=== PATIENT | female | born 1990 | race African-American/Black ===

== ENCOUNTER 2019-09-10 04:08 | Inpatient (IN) | payer OTHER ==
[2019-09-10] VITALS (8 sets, daily range): BP systolic 124–155; BP diastolic 80–98
[~2019-09-10] VITALS: Ht 170.2 cm; Wt 87.1 kg
[2019-09-10] MEDS ORDERED: Omnipaque-300 100ml vial INJ PRN (04:30)
[2019-09-10] MEDS ORDERED: Morphine Sulfate 4mg/ml Inj (IV USE ONLY) IVP ONE ×2 (04:30→07:30)
--- NOTE | 2019-09-10 04:30 | NUR ---
ED Nurse Note: PT WALKED IN TO ER C/O LOWER ABD PAIN. STATES HAD SX YESTERDAY FOR UTERINE ARTERY EMBOLIZATION. FAMILY AT BEDSIDE. ERMD AT BEDSIDE. VSS. WILL CONTINUE TO MONITOR PATIENT.
--- NOTE | 2019-09-10 04:43 | NUR ---
ED Nurse Note: IV ESTABLISHED ON LEFT WRIST WITH 20G. BLOOD DRAWN AND SENT TO LAB. LINE PATENT AND INTACT.
[2019-09-10 04:59] LABS: BASOPHILS % (AUTO) 0.5 % (0.0-2.0); HEMATOCRIT 37.1 % (37.0-47.0); HEMOGLOBIN 12.2 G/DL (12.0-16.0); LYMPHOCYTES % (AUTO) 11.3 % (20.0-45.0); MEAN CORPUSCULAR VOLUME 91 FL (80-99); MONOCYTES % (AUTO) 6.8 % (1.0-10.0); NEUTROPHILS % (AUTO) 81.4 % (45.0-75.0); PLATELET COUNT 197 K/UL (150-450); RED BLOOD COUNT 4.08 M/UL (4.20-5.40); RED CELL DISTRIBUTION WIDTH 10.9 % (11.6-14.8); WHITE BLOOD COUNT 9.7 K/UL (4.8-10.8)
--- NOTE | 2019-09-10 05:00 | NUR ---
ED Nurse Note: URINE COLLECTED AND SENT TO LAB.
[2019-09-10 05:16] LABS: INR 1.2 (0.9-1.1)
[2019-09-10 05:17] LABS: ANION GAP 12 mmol/L (5-15); BLOOD UREA NITROGEN 9 mg/dL (7-18); CALCIUM 9.1 MG/DL (8.5-10.1); CARBON DIOXIDE 27 MMOL/L (21-32); CHLORIDE 101 MMOL/L (98-107); CREATININE 0.8 MG/DL (0.55-1.30); POTASSIUM 4.4 MMOL/L (3.5-5.1); SODIUM 139 MMOL/L (136-145)
[2019-09-10 05:32] LABS: ALANINE AMINOTRANSFERASE 25 U/L (12-78); ALBUMIN/GLOBULIN RATIO 0.9 (1.0-2.7); ALKALINE PHOSPHATASE 90 U/L (46-116); ASPARTATE AMINO TRANSFERASE 44 U/L (15-37); BILIRUBIN,TOTAL 1.1 MG/DL (0.2-1.0)
[2019-09-10 05:35] LABS: BILIRUBIN,DIRECT 0.1 MG/DL (0.0-0.3)
[2019-09-10 05:55] LABS: APPEARANCE,URINE CLEAR; BILIRUBIN, URINE NEGATIVE (NEGATIVE); COLOR,URINE PALE YELLOW; GLUCOSE, URINE (UA) NEGATIVE (NEGATIVE); KETONES,URINE NEGATIVE (NEGATIVE); LEUKOCYTE ESTERASE ,URINE NEGATIVE (NEGATIVE); NITRITE,URINE NEGATIVE (NEGATIVE); PH,URINE 7 (4.5-8.0); PROTEIN,URINE NEGATIVE (NEGATIVE); UROBILINOGEN,URINE NORMAL MG/DL (0.0-1.0)
--- NOTE | 2019-09-10 06:00 | Emergency Room Report ---
History of Present Illness General Chief Complaint: Abdominal Pain Source: Patient Present Illness HPI 28-year-old female presents ED for evaluation. Complaining of abdominal pain. Started yesterday. Had uterine artery embolization yesterday. Pain started right after pain got so bad so she came to the ED for evaluation. 10 out of 10 , sharp, nonradiating. Denies fevers or chills. No other aggravating relieving factors. Denies any other associated symptoms Allergies: Coded Allergies: No Known Allergies (Unverified , 09/10/19) Patient History Past Medical History: asthma Past Surgical History: other - uterine artery embolization 09/09/19 Pertinent Family History: none Social History: Denies: smoking, alcohol use, drug use Last Menstrual Period: 08/20/19 Now: No Immunizations: UTD Reviewed Nursing Documentation: PMH: Agreed; PSxH: Agreed Nursing Documentation-PMH Hx Asthma: Yes Review of Systems All Other Systems: negative except mentioned in HPI Physical Exam Vital Signs Date Time Temp Pulse Resp B/P (MAP) Pulse Ox O2 Delivery O2 Flow Rate FiO2 09/10/19 04:20 98.2 98 18 98 Room Air Sp02 EP Interpretation: reviewed, normal General Appearance: no apparent distress, alert, GCS 15, non-toxic Head: normocephalic, atraumatic Eyes: bilateral eye normal inspection, bilateral eye PERRL ENT: hearing grossly normal, normal pharynx, no angioedema, normal voice Neck: full range of motion, supple/symm/no masses Respiratory: chest non-tender, lungs clear, normal breath sounds, speaking full sentences Cardiovascular #1: regular rate, rhythm, no edema Cardiovascular #2: 2+ carotid (R), 2+ carotid (L), 2+ radial (R), 2+ radial (L) , 2+ dorsalis pedis (R), 2+ dorsalis pedis (L) Gastrointestinal: normal bowel sounds, soft, non-distended, no rebound, tenderness Rectal: deferred Genitourinary: normal inspection, no CVA tenderness Musculoskeletal: back normal, normal range of motion, gait/station normal, non- tender Neurologic: alert, motor strength/tone normal, oriented x3, sensory intact, responsive, speech normal Psychiatric: judgement/insight normal, memory normal, mood/affect normal, no suicidal/homicidal ideation Reflexes: 3+ bicep (R), 3+ bicep (L), 3+ tricep (R), 3+ tricep (L), 3+ knee (R) , 3+ knee (L) Skin: no rash Lymphatic: no adenopathy Medical Decision Making Diagnostic Impression: Primary Impression: Postoperative pain Additional Impression: Abdominal pain Qualified Codes: R10.84 - Generalized abdominal pain ER Course Hospital Course 28 yo F presents with abd pain, s/p uteine artery embolization Differential diagnoses include: postop abscess, perforation, SBO Clinical course Patient placed on stretcher. site monitor. After initial history and physical I ordered labs, IV fluids, UA, pain medication and CT scan Labs - no leukocytosis, Hb/Hct stable, electrolytes ok. CT abdomen and pelvis - postoperative changes in uterus, no acute process identified However patient continues to have pain. Additional meds given. Discussed with Dr. Mills who performed the surgery. He agrees to admission I feel this is a highly complex case requiring extensive working including EKG/ Rhythm strip, Xray/CT/US, Blood/urine lab work, repeat exams while in ED, and administration of strong opiates/narcotics for pain control, admission to hospital or close patient follow up. Diagnosis - postoperative pain, abdominal pain Patient admitted to floor in serious condition Labs Test 09/10/19 04:35 09/10/19 05:30 09/11/19 05:20 09/12/19 05:10 White Blood Count 9.7 K/UL (4.8-10.8) 8.5 K/UL (4.8-10.8) 8.2 K/UL (4.8-10.8) Red Blood Count 4.08 M/UL (4.20-5.40) 3.83 M/UL (4.20-5.40) 4.13 M/UL (4.20-5.40) Hemoglobin 12.2 G/DL (12.0-16.0) 11.5 G/DL (12.0-16.0) 12.4 G/DL (12.0-16.0) Hematocrit 37.1 % (37.0-47.0) 34.8 % (37.0-47.0) 37.1 % (37.0-47.0) Mean Corpuscular Volume 91 FL (80-99) 91 FL (80-99) 90 FL (80-99) Mean Corpuscular Hemoglobin 30.0 PG (27.0-31.0) 30.1 PG (27.0-31.0) 30.0 PG (27.0-31.0) Mean Corpuscular Hemoglobin Concent 33.0 G/DL (32.0-36.0) 33.1 G/DL (32.0-36.0) 33.4 G/DL (32.0-36.0) Red Cell Distribution Width 10.9 % (11.6-14.8) 10.9 % (11.6-14.8) 10.8 % (11.6-14.8) Platelet Count 197 K/UL (150-450) 165 K/UL (150-450) 180 K/UL (150-450) Mean Platelet Volume 9.6 FL (6.5-10.1) 7.6 FL (6.5-10.1) 8.5 FL (6.5-10.1) Neutrophils (%) (Auto) 81.4 % (45.0-75.0) 78.7 % (45.0-75.0) 73.5 % (45.0-75.0) Lymphocytes (%) (Auto) 11.3 % (20.0-45.0) 14.0 % (20.0-45.0) 15.4 % (20.0-45.0) Monocytes (%) (Auto) 6.8 % (1.0-10.0) 6.4 % (1.0-10.0) 9.2 % (1.0-10.0) Eosinophils (%) (Auto) 0.0 % (0.0-3.0) 0.5 % (0.0-3.0) 0.8 % (0.0-3.0) Basophils (%) (Auto) 0.5 % (0.0-2.0) 0.4 % (0.0-2.0) 1.0 % (0.0-2.0) Prothrombin Time 12.2 SEC (9.30-11.50) Prothromb Time International Ratio 1.2 (0.9-1.1) Activated Partial Thromboplast Time 19 SEC (23-33) Sodium Level 139 MMOL/L (136-145) 140 MMOL/L (136-145) 137 MMOL/L (136-145) Potassium Level 4.4 MMOL/L (3.5-5.1) 3.5 MMOL/L (3.5-5.1) 3.7 MMOL/L (3.5-5.1) Chloride Level 101 MMOL/L (98-107) 105 MMOL/L (98-107) 103 MMOL/L (98-107) Carbon Dioxide Level 27 MMOL/L (21-32) 26 MMOL/L (21-32) 27 MMOL/L (21-32) Anion Gap 12 mmol/L (5-15) 9 mmol/L (5-15) 7 mmol/L (5-15) Blood Urea Nitrogen 9 mg/dL (7-18) 7 mg/dL (7-18) 8 mg/dL (7-18) Creatinine 0.8 MG/DL (0.55-1.30) 1.0 MG/DL (0.55-1.30) 0.8 MG/DL (0.55-1.30) Estimat Glomerular Filtration Rate > 60 mL/min (>60) > 60 mL/min (>60) > 60 mL/min (>60) Glucose Level 115 MG/DL (74-106) 102 MG/DL (74-106) 107 MG/DL (74-106) Calcium Level 9.1 MG/DL (8.5-10.1) 8.5 MG/DL (8.5-10.1) 8.7 MG/DL (8.5-10.1) Total Bilirubin 1.1 MG/DL (0.2-1.0) 1.1 MG/DL (0.2-1.0) 1.1 MG/DL (0.2-1.0) Direct Bilirubin 0.1 MG/DL (0.0-0.3) 0.2 MG/DL (0.0-0.3) 0.1 MG/DL (0.0-0.3) Aspartate Amino Transf (AST/SGOT) 44 U/L (15-37) 24 U/L (15-37) 32 U/L (15-37) Alanine Aminotransferase (ALT/SGPT) 25 U/L (12-78) 20 U/L (12-78) 21 U/L (12-78) Alkaline Phosphatase 90 U/L (46-116) 82 U/L (46-116) 77 U/L (46-116) Total Protein 8.6 G/DL (6.4-8.2) 7.2 G/DL (6.4-8.2) 7.4 G/DL (6.4-8.2) Albumin 4.0 G/DL (3.4-5.0) 3.4 G/DL (3.4-5.0) 3.3 G/DL (3.4-5.0) Globulin 4.6 g/dL 3.8 g/dL 4.1 g/dL Albumin/Globulin Ratio 0.9 (1.0-2.7) 0.9 (1.0-2.7) 0.8 (1.0-2.7) Lipase 273 U/L (73-393) Human Chorionic Gonadotropin, Qual Negative (NEGATIVE) Urine Color Pale yellow Urine Appearance Clear Urine pH 7 (4.5-8.0) Urine Specific [place] 1.010 (1.005-1.035) Urine Protein Negative (NEGATIVE) Urine Glucose (UA) Negative (NEGATIVE) Urine Ketones Negative (NEGATIVE) Urine Blood 3+ (NEGATIVE) Urine Nitrite Negative (NEGATIVE) Urine Bilirubin Negative (NEGATIVE) Urine Urobilinogen Normal MG/DL (0.0-1.0) Urine Leukocyte Esterase Negative (NEGATIVE) Urine RBC 2-4 /HPF (0 - 2) Urine WBC 0-2 /HPF (0 - 2) Urine Squamous Epithelial Cells Few /LPF (NONE/OCC) Urine Bacteria None /HPF (NONE) Urine HCG, Qualitative Negative (NEGATIVE) CT/MRI/US Diagnostic Results CT/MRI/US Diagnostic Results : Imaging Test Ordered: CT A/p Impression IMPRESSION: * Markedly enlarged and lobulated uterus with multiple heterogeneous masses suggesting fibroids. High attenuation material within these presumed fibroids may represent areas of hemorrhage and/or retained contrast from prior contrast load, especially as there is branching foci of air within these masses which may suggest recent endovascular intervention such as fibroid embolization. Correlation with history is recommended. * High density material noted within the gallbladder lumen suggesting vicarious excretion of contrast. No pericholecystic inflammatory changes. * Subcentimeter pleural-based nodular densities which may related to atelectatic changes or pulmonary nodules. These measure less than 5 mm. No routine imaging follow-up is recommended per Fleischner Society criteria guidelines if patient is considered low risk for lung cancer. If the patient is considered high risk consider follow-up CT scan in 12 months. Last Vital Signs Date Time Temp Pulse Resp B/P (MAP) Pulse Ox O2 Delivery O2 Flow Rate FiO2 09/10/19 05:15 98.3 09/10/19 04:20 98 18 98 Room Air Status: improved Disposition: ADMITTED INPATIENT Condition: Serious Referrals: NON PHYSICIAN (PCP) Marlon Manzano MD Sep 10, 2019 06:00
--- NOTE | 2019-09-10 06:15 | NUR ---
ED Nurse Note: pt back from ct via wheelchair accompanied by trade recruiter and family.
--- NOTE | 2019-09-10 06:25 | NUR ---
ED Nurse Note: PT WENT TO CT ACCOMPANIED BY JOE BAPTISTE AND FAMILY MEMBER VIA WHEELCHAIR
--- NOTE | 2019-09-10 07:20 | NUR ---
ED Nurse Note: GAVE REPORT TO ALICE RUSSELL.
[2019-09-10] MEDS ORDERED: Ketorolac 30mg Inj IV ONE (07:30)
--- NOTE | 2019-09-10 08:35 | Diagnostic Imaging Report ---
Indication: Abdominal pain Technique: CT of the abdomen and pelvis utilizing automated exposure control with intravenous contrast. Venous scanning performed. Axial, sagittal and coronal reformats presented. CT dose: Total DLP 1174.6 mGycm; CTDI vol 19.5 mGy Comparison: None Findings: Subcentimeter subpleural nodular densities noted in the lung bases measuring less than 5 mm. These may be related to atelectatic changes versus pulmonary nodules. No focal consolidation. No pleural effusion or pneumothorax. Partially imaged heart normal in size. High attenuation material is noted within the gallbladder raising question for vicarious excretion of contrast. Correlate for this degree of prior contrast administration. No pericholecystic inflammatory changes. No biliary ductal dilatation. No focal hepatic mass lesion appreciated on this single phase exam. Liver contour appears smooth. Spleen, adrenal glands and pancreas unremarkable. Kidneys enhance symmetrically. There is no urinary tract stone. No perinephric stranding. The uterus is markedly enlarged with multiple heterogeneous masses, the largest in the anterior myometrium with smaller masses noted in the posterior myometrium and fundus. Masses demonstrate some internal high attenuation components and branching foci of air which may related to fibroid embolization and correlation with history is recommended. There is no evidence of free intraperitoneal air or fluid. No evidence of bowel obstruction. Appendix is normal in caliber. No periappendiceal inflammatory changes. Abdominal aorta normal in caliber. No pathologically enlarged lymphadenopathy. There is a small fat-containing umbilical hernia. There is no acute osseous abnormality. IMPRESSION: * Markedly enlarged and lobulated uterus with multiple heterogeneous masses suggesting fibroids. High attenuation material within these presumed fibroids may represent areas of hemorrhage and/or retained contrast from prior contrast load, especially as there is branching foci of air within these masses which may suggest recent endovascular intervention such as fibroid embolization. Correlation with history is recommended. * High density material noted within the gallbladder lumen suggesting vicarious excretion of contrast. No pericholecystic inflammatory changes. * Subcentimeter pleural-based nodular densities which may related to atelectatic changes or pulmonary nodules. These measure less than 5 mm. No routine imaging follow-up is recommended per Fleischner Society criteria guidelines if patient is considered low risk for lung cancer. If the patient is considered high risk consider follow-up CT scan in [address] scanner at [facility] is accredited by the [employer] and the scans are performed using protocols designed to limit radiation exposure to as low as reasonably achievable to attain images of sufficient resolution adequate for diagnostic evaluation.
--- NOTE | 2019-09-10 10:22 | NUR ---
ED Nurse Note: REPORT GIVEN TO WALKER RUSSELL OF MED SURG UNIT.
[2019-09-10] MEDS ORDERED: HYDROmorphone 1mg/ml Carpuject IVP PRN (10:30)
--- NOTE | 2019-09-10 11:00 | NUR ---
KELLY.ED Nurse Note: PT TRANSFERRED TO MED SURG UNIT WITH ALL HER BELONGINGS WITH HER. PT IS ON STABLE CONDITION.
[2019-09-10] MEDS: Potassium Chloride 20 MEQ in Dextrose 5%/Lactated Ringer's 1,000 ML IV SCH ×2 (11:51→20:42)
--- NOTE | 2019-09-10 12:00 | NUR ---
NURSE NOTES: PT RECEIVED ON FLOOR IN STABLE CONDITION. VSS. PT STATES PAIN 6/10 AND WAS ADMINISTERED PRN DILAUDID 2MG ORDERED. BELONGINGS CHECKED AT BEDSIDE, ALL ACCOUNTED. PT STATES SHE HAS NO PLATA OR WALLET. RN LEFT MESSAGE FOR DR CHRISTIANSON REGARDING DR COLON' ORDER FOR CONSULT. IN NO APPARENT DISTRESS AT THIS TIME. WILL CONTINUE TO MONITOR.
--- NOTE | 2019-09-10 13:00 | NUR ---
NURSE NOTES: PT EDUCATED ON SCD. SCDS APPLIED AND PT VERBALIZED UNDERSTANDING. WILL CONTINUE TO MONITOR.
--- NOTE | 2019-09-10 13:31 | General Surgery Progress Note ---
General Surgery-Progress Note Subjective Day of Surgery: september 09 Procedure Performed uterine artery embolization Symptoms: improved, tolerating diet, voiding well, passing flatus, pain decreased Objective Last 24 Hour Vital Signs Date Time Temp Pulse Resp B/P (MAP) Pulse Ox O2 Delivery O2 Flow Rate FiO2 09/10/19 13:08 Room Air 09/10/19 11:17 98.4 98 150/93 (112) 09/10/19 10:15 98.5 77 15 124/93 100 Room Air 09/10/19 08:47 98.5 82 16 135/80 100 Room Air 09/10/19 08:21 98.5 09/10/19 08:21 98.5 09/10/19 06:35 92 18 Room Air 98 09/10/19 06:35 98.8 89 18 132/86 98 Room Air 09/10/19 05:15 98.3 09/10/19 04:20 98.2 98 18 98 Room Air I&O Intake and Output 09/09/19 09/10/19 19:00 07:00 Intake Total 0 ml Balance 0 ml Intake Oral 0 ml Dressing: dry Wound: clean Drains: none Cardiovascular: RSR Respiratory: clear Abdomen: soft, flat, scaphoid, tenderness, present bowel sounds Laboratory Tests Test 09/10/19 04:35 09/10/19 05:30 White Blood Count 9.7 K/UL (4.8-10.8) Red Blood Count 4.08 M/UL (4.20-5.40) L Hemoglobin 12.2 G/DL (12.0-16.0) Hematocrit 37.1 % (37.0-47.0) Mean Corpuscular Volume 91 FL (80-99) Mean Corpuscular Hemoglobin 30.0 PG (27.0-31.0) Mean Corpuscular Hemoglobin Concent 33.0 G/DL (32.0-36.0) Red Cell Distribution Width 10.9 % (11.6-14.8) L Platelet Count 197 K/UL (150-450) Mean Platelet Volume 9.6 FL (6.5-10.1) Neutrophils (%) (Auto) 81.4 % (45.0-75.0) H Lymphocytes (%) (Auto) 11.3 % (20.0-45.0) L Monocytes (%) (Auto) 6.8 % (1.0-10.0) Eosinophils (%) (Auto) 0.0 % (0.0-3.0) Basophils (%) (Auto) 0.5 % (0.0-2.0) Prothrombin Time 12.2 SEC (9.30-11.50) H Prothromb Time International Ratio 1.2 (0.9-1.1) H Activated Partial Thromboplast Time 19 SEC (23-33) L Sodium Level 139 MMOL/L (136-145) Potassium Level 4.4 MMOL/L (3.5-5.1) Chloride Level 101 MMOL/L (98-107) Carbon Dioxide Level 27 MMOL/L (21-32) Anion Gap 12 mmol/L (5-15) Blood Urea Nitrogen 9 mg/dL (7-18) Creatinine 0.8 MG/DL (0.55-1.30) Estimat Glomerular Filtration Rate > 60 mL/min (>60) Glucose Level 115 MG/DL (74-106) H Calcium Level 9.1 MG/DL (8.5-10.1) Total Bilirubin 1.1 MG/DL (0.2-1.0) H Direct Bilirubin 0.1 MG/DL (0.0-0.3) Aspartate Amino Transf (AST/SGOT) 44 U/L (15-37) H Alanine Aminotransferase (ALT/SGPT) 25 U/L (12-78) Alkaline Phosphatase 90 U/L (46-116) Total Protein 8.6 G/DL (6.4-8.2) H Albumin 4.0 G/DL (3.4-5.0) Globulin 4.6 g/dL Albumin/Globulin Ratio 0.9 (1.0-2.7) L Lipase 273 U/L (73-393) Human Chorionic Gonadotropin, Qual Negative (NEGATIVE) Urine Color Pale yellow Urine Appearance Clear Urine pH 7 (4.5-8.0) Urine Specific [place] 1.010 (1.005-1.035) Urine Protein Negative (NEGATIVE) Urine Glucose (UA) Negative (NEGATIVE) Urine Ketones Negative (NEGATIVE) Urine Blood 3+ (NEGATIVE) H Urine Nitrite Negative (NEGATIVE) Urine Bilirubin Negative (NEGATIVE) Urine Urobilinogen Normal MG/DL (0.0-1.0) Urine Leukocyte Esterase Negative (NEGATIVE) Urine RBC 2-4 /HPF (0 - 2) H Urine WBC 0-2 /HPF (0 - 2) Urine Squamous Epithelial Cells Few /LPF (NONE/OCC) Urine Bacteria None /HPF (NONE) Urine HCG, Qualitative Negative (NEGATIVE) Imaging CT scan, abdomen, pelvis, no negative findings. Assessment Post-op Diagnosis uncontrolled post procedure pain Plan Additional Comments improved on iv dilaudid, will follow Devin Mills MD Sep 10, 2019 13:31
[2019-09-10] MEDS: ceFAZolin sod 1 GM in D5W 55 ML IVPB SCH ×2 (13:43→22:23)
--- NOTE | 2019-09-10 14:35 | History & Physical ---
History of Present Illness General Date patient seen: Sep 10, 2019 Reason for Hospitalization: Abdominal Pain Present Illness HPI 28 y/o female w/ hx mild asthma, uterine fibroids s/p uterine artery embolization 09/09 presented with pain and vomiting. Seen in ED and CT abdomen/ pelvis w/o acute intraabdominal findings. Given IVF, abx, and dilaudid and is feeling better. Currently denies nausea. [place] her asthma bothered her several days ago and used her ventolin but breathing comfortable now. Subcentimeter pulmonary nodules noted on lung cuts of Ct abdomen/pelvis. Allergies: Coded Allergies: No Known Allergies (Unverified , 09/10/19) Patient History History Provided By: Patient Healthcare decision maker Resuscitation status Full Code Advanced Directive on File Patient History Narrative PMH Asthma Uterine fibroids Review of Systems Review of Symptoms General ROS: no weight loss or fever Psychological ROS: no depression or mood changes, no memory loss Ophthalmic ROS: no visual changes or eye irritation ENT ROS: no nasal congestion, hearing loss, dizziness Allergy and Immunology ROS: no allergic symptoms or urticaria Hematological and Lymphatic ROS: no swollen glands, unusual bleeding or bruising Endocrine ROS: no polyuria, polydipsia, weight changes, temperature intolerance Respiratory ROS: no cough, shortness of breath, or wheezing Cardiovascular ROS: no chest pain or dyspnea on exertion Gastrointestinal ROS: +abdominal pain Musculoskeletal ROS: no myalgias or arthralgias Neurological ROS: no TIA or stroke symptoms Dermatological ROS: no new or changing skin lesions, rashes or pruritis Physical Exam Physical Exam General appearance: alert, cooperative, no distress, appears stated age Head: Normocephalic, without obvious abnormality, atraumatic Eyes: conjunctivae/corneas clear. PERRL, EOM's intact. Fundi benign Throat: Lips, mucosa, and tongue normal. Teeth and gums normal Neck: supple, symmetrical, trachea midline, no adenopathy, thyroid: not enlarged, symmetric, no tenderness/mass/nodules, no carotid bruit and no JVD Lungs: clear to auscultation bilaterally Heart: regular rate and rhythm, S1, S2 normal, no murmur, click, rub or gallop Abdomen: soft, mild lower abdomen tender. Bowel sounds normal. No masses, no organomegaly Extremities: extremities normal, atraumatic, no cyanosis or edema Pulses: 2+ and symmetric Skin: Skin color, texture, turgor normal. No rashes or lesions Neurologic: Grossly normal Last 24 Hour Vital Signs Date Time Temp Pulse Resp B/P (MAP) Pulse Ox O2 Delivery O2 Flow Rate FiO2 09/10/19 13:48 97.8 88 138/88 (105) 09/10/19 13:08 Room Air 09/10/19 11:17 98.4 98 150/93 (112) 09/10/19 10:15 98.5 77 15 124/93 100 Room Air 09/10/19 08:47 98.5 82 16 135/80 100 Room Air 09/10/19 08:21 98.5 09/10/19 08:21 98.5 09/10/19 06:35 92 18 Room Air 98 09/10/19 06:35 98.8 89 18 132/86 98 Room Air 09/10/19 05:15 98.3 09/10/19 04:20 98.2 98 18 98 Room Air Intake and Output 09/09/19 09/10/19 19:00 07:00 Intake Total 0 ml Balance 0 ml Intake Oral 0 ml Laboratory Tests Test 09/10/19 04:35 09/10/19 05:30 White Blood Count 9.7 K/UL (4.8-10.8) Red Blood Count 4.08 M/UL (4.20-5.40) L Hemoglobin 12.2 G/DL (12.0-16.0) Hematocrit 37.1 % (37.0-47.0) Mean Corpuscular Volume 91 FL (80-99) Mean Corpuscular Hemoglobin 30.0 PG (27.0-31.0) Mean Corpuscular Hemoglobin Concent 33.0 G/DL (32.0-36.0) Red Cell Distribution Width 10.9 % (11.6-14.8) L Platelet Count 197 K/UL (150-450) Mean Platelet Volume 9.6 FL (6.5-10.1) Neutrophils (%) (Auto) 81.4 % (45.0-75.0) H Lymphocytes (%) (Auto) 11.3 % (20.0-45.0) L Monocytes (%) (Auto) 6.8 % (1.0-10.0) Eosinophils (%) (Auto) 0.0 % (0.0-3.0) Basophils (%) (Auto) 0.5 % (0.0-2.0) Prothrombin Time 12.2 SEC (9.30-11.50) H Prothromb Time International Ratio 1.2 (0.9-1.1) H Activated Partial Thromboplast Time 19 SEC (23-33) L Sodium Level 139 MMOL/L (136-145) Potassium Level 4.4 MMOL/L (3.5-5.1) Chloride Level 101 MMOL/L (98-107) Carbon Dioxide Level 27 MMOL/L (21-32) Anion Gap 12 mmol/L (5-15) Blood Urea Nitrogen 9 mg/dL (7-18) Creatinine 0.8 MG/DL (0.55-1.30) Estimat Glomerular Filtration Rate > 60 mL/min (>60) Glucose Level 115 MG/DL (74-106) H Calcium Level 9.1 MG/DL (8.5-10.1) Total Bilirubin 1.1 MG/DL (0.2-1.0) H Direct Bilirubin 0.1 MG/DL (0.0-0.3) Aspartate Amino Transf (AST/SGOT) 44 U/L (15-37) H Alanine Aminotransferase (ALT/SGPT) 25 U/L (12-78) Alkaline Phosphatase 90 U/L (46-116) Total Protein 8.6 G/DL (6.4-8.2) H Albumin 4.0 G/DL (3.4-5.0) Globulin 4.6 g/dL Albumin/Globulin Ratio 0.9 (1.0-2.7) L Lipase 273 U/L (73-393) Human Chorionic Gonadotropin, Qual Negative (NEGATIVE) Urine Color Pale yellow Urine Appearance Clear Urine pH 7 (4.5-8.0) Urine Specific [place] 1.010 (1.005-1.035) Urine Protein Negative (NEGATIVE) Urine Glucose (UA) Negative (NEGATIVE) Urine Ketones Negative (NEGATIVE) Urine Blood 3+ (NEGATIVE) H Urine Nitrite Negative (NEGATIVE) Urine Bilirubin Negative (NEGATIVE) Urine Urobilinogen Normal MG/DL (0.0-1.0) Urine Leukocyte Esterase Negative (NEGATIVE) Urine RBC 2-4 /HPF (0 - 2) H Urine WBC 0-2 /HPF (0 - 2) Urine Squamous Epithelial Cells Few /LPF (NONE/OCC) Urine Bacteria None /HPF (NONE) Urine HCG, Qualitative Negative (NEGATIVE) Height (Feet): 5 Height (Inches): 7.00 Weight (Pounds): 192 Medications Current Medications Medications (Trade) Dose Ordered Sig/Chelly Route PRN Reason Start Time Stop Time Status Last Admin Dose Admin Cefazolin Sodium 1 gm/Dextrose 55 ml @ 110 mls/hr Q8HR IVPB 09/10/19 14:00 09/17/19 13:59 09/10/19 13:43 Hydromorphone HCl (Dilaudid) 1 mg Q3HR PRN IVP For mild pain 09/10/19 10:30 09/17/19 10:29 Hydromorphone HCl (Dilaudid) 2 mg Q2HR PRN IVP For severe pain 09/10/19 10:30 09/17/19 10:29 Hydromorphone HCl (Dilaudid) 2 mg Q3HR PRN IVP For moderate pain 09/10/19 10:30 09/17/19 10:29 09/10/19 11:26 Iohexol (OMNIPAQUE-300 100ml) 100 ml NOW PRN INJ Radiology Procedure 09/10/19 04:30 09/12/19 04:27 Ondansetron HCl (Zofran) 4 mg Q6H PRN IVP Nausea & Vomiting 09/10/19 10:30 10/10/19 10:29 Potassium Chloride 20 meq/ Dextrose/Lactated Ringer's 1,010 ml @ 120 mls/hr Q8H25M IV 09/10/19 12:00 10/10/19 11:59 09/10/19 11:51 Assessment/Plan Assessment/Plan: Problem List: * Abdominal pain, post-operative * Uterine artery embolization 09/09/19 * Uterine fibroids * Asthma w/o acute exacerbation * subcentimeter pulmonary nodules CT abdomen/pelvis lung cuts 09/10/19 Plan: * pain control * IVF * PO as tolerated * monitor breathing * low risk pulmonary patient, no need to f/u subcentimeter pulmonary micronodules [facility] Hospital declaration INPATIENT level of care is warranted for this patient because patient is a 89 year old with who presents with suspicion of . I have a high level of concern because . Patient is at high risk for . Plan of care/treatment include . Patient care is expected to be greater than 2 midnights. OBSERVATION level of care is warranted for this patient. Patient is a 89 year old with who presents with . Patient will be admitted for 1 midnight, but if additional night(s) is/are necessary, patient will be converted to inpatient status for the entire hospitalization Disposition: Once the patient is stable to leave the hospital, I anticipate the patient will likely be discharged to the following environment: Estimated discharge date: I spent 70 minutes on this patient's case, and minutes was dedicated to counseling and/or care coordination. MIPS ([employer]it-based Incentive Payment System) Applicable CPT: 74570, 35721 CHECK ALL THAT ARE MET: Measure #5 (CHF): All ages. Prescribe LARRY/ARB upon discharge for patients with left ventricular systolic dysfunction. If not, the reason is clearly documented in the medical chart. Measure #8 (CHF): All ages. Prescribe a beta axel upon discharge for patients with left ventricular systolic dysfunction. If not, the reason is clearly documented in the medical chart. Measure #47 Advance care plan or surrogate decision maker documented in the medical record. Measure #130 The provider has documented, updated, or reviewed the patients current medication list and has documented it in the patients note. Measure #374 (All): Send report to referring provider. Measure #407(Sepsis due to MSSA bacteremia): Age 18+ Patient treated with a beta-lactam antibiotic (Nafcillin, Oxacillin or Cefazolin) as definitive therapy. MEDICAL COMPLEXITY High complexity medical decision making (need 2/3 categories) Problem - need 4 points Acute/new problem with new plan for workup (4 points, 1 max) Acute/new problem without additional workup (3 points, 1 max) Unstable chronic problem actively being managed (2 point each, 2 max) Stable chronic problem actively being managed (1 point each, 2 max) Self-limited/transient process (constipation, muscle ache, etc) (1 point each , 2 max) Data - need 4 points Reviewed labs/imaging studies (1 points, 2 max) Independent review of imaging (EKG, xrays, etc) (2 points, 2 max) Discussed case with consult/other MD/RN (2 points, 2 max) High Risk - qualify if have one of the following: Severe exacerbation of acute problem, acute mental status change, IV narcotics , monitoring drug levels (vancomycin, INR, tacrolimus etc) Nahid Hatch MD Sep 10, 2019 14:34
--- NOTE | 2019-09-10 15:57 | Consultation ---
History of Present Illness General Date patient seen: Sep 10, 2019 Reason for Hospitalization: Abdominal Pain Present Illness HPI This is a very pleasant 28-year-old who female presents ED f at [facility] or evaluation of abdominal pain for 1 day.. Had uterine artery embolization yesterday and pain started right after. Patient states that states that pain is pain got so bad so she came to the ED for evaluation. 10 out of 10, sharp, nonradiating. Denies fevers or chills. No other aggravating relieving factors. Denies any other associated symptoms feels very concerned about the pain is generalized but somewhat located on the right side of the abdomen more prominently. No nausea vomiting. Passing flatus and bowel movement. Surgery called to evaluate and assist with care. Patient seen, patient evaluated, chart reviewed. Patient states with pain medication since admission pain has been improved but still does have discomfort. Allergies: Coded Allergies: No Known Allergies (Unverified , 09/10/19) Patient History History Provided By: Patient, Medical Record, PMD Healthcare decision maker Resuscitation status Full Code Advanced Directive on File Past Medical/Surgical History Past Medical/Surgical History: (1) Abdominal pain (2) Postoperative pain Review of Systems Review of Symptoms General ROS: no weight loss or fever Psychological ROS: no depression or mood changes, no memory loss Ophthalmic ROS: no visual changes or eye irritation ENT ROS: no nasal congestion, hearing loss, dizziness Allergy and Immunology ROS: no allergic symptoms or urticaria Hematological and Lymphatic ROS: no swollen glands, unusual bleeding or bruising Endocrine ROS: no polyuria, polydipsia, weight changes, temperature intolerance Respiratory ROS: no cough, shortness of breath, or wheezing Cardiovascular ROS: no chest pain or dyspnea on exertion Gastrointestinal ROS: abdominal pain, bright red blood in stool. Musculoskeletal ROS: no myalgias or arthralgias Neurological ROS: no TIA or stroke symptoms Dermatological ROS: no new or changing skin lesions, rashes or pruritis Physical Exam Physical Exam General appearance: alert, cooperative, no distress, appears stated age Head: Normocephalic, without obvious abnormality, atraumatic Eyes: conjunctivae/corneas clear. PERRL, EOM's intact. Fundi benign Throat: Lips, mucosa, and tongue normal. Teeth and gums normal Neck: supple, symmetrical, trachea midline, no adenopathy, thyroid: not enlarged, symmetric, no tenderness/mass/nodules, no carotid bruit and no JVD Lungs: clear to auscultation bilaterally Heart: regular rate and rhythm, S1, S2 normal, no murmur, click, rub or gallop Abdomen: soft, non-tender. Bowel sounds normal. No masses, no organomegaly Extremities: extremities normal, atraumatic, no cyanosis or edema Pulses: 2+ and symmetric Skin: Skin color, texture, turgor normal. No rashes or lesions Neurologic: Grossly normal Last 24 Hour Vital Signs Date Time Temp Pulse Resp B/P (MAP) Pulse Ox O2 Delivery O2 Flow Rate FiO2 09/10/19 13:48 97.8 88 138/88 (105) 09/10/19 13:08 Room Air 09/10/19 11:17 98.4 98 150/93 (112) 09/10/19 11:00 98.7 80 19 135/86 96 Room Air 09/10/19 10:15 98.5 77 15 124/93 100 Room Air 09/10/19 08:47 98.5 82 16 135/80 100 Room Air 09/10/19 08:21 98.5 09/10/19 08:21 98.5 09/10/19 06:35 92 18 Room Air 98 09/10/19 06:35 98.8 89 18 132/86 98 Room Air 09/10/19 05:15 98.3 09/10/19 04:20 98.2 98 18 98 Room Air Intake and Output 09/09/19 09/10/19 19:00 07:00 Intake Total 0 ml Balance 0 ml Intake Oral 0 ml Laboratory Tests Test 09/10/19 04:35 09/10/19 05:30 White Blood Count 9.7 K/UL (4.8-10.8) Red Blood Count 4.08 M/UL (4.20-5.40) L Hemoglobin 12.2 G/DL (12.0-16.0) Hematocrit 37.1 % (37.0-47.0) Mean Corpuscular Volume 91 FL (80-99) Mean Corpuscular Hemoglobin 30.0 PG (27.0-31.0) Mean Corpuscular Hemoglobin Concent 33.0 G/DL (32.0-36.0) Red Cell Distribution Width 10.9 % (11.6-14.8) L Platelet Count 197 K/UL (150-450) Mean Platelet Volume 9.6 FL (6.5-10.1) Neutrophils (%) (Auto) 81.4 % (45.0-75.0) H Lymphocytes (%) (Auto) 11.3 % (20.0-45.0) L Monocytes (%) (Auto) 6.8 % (1.0-10.0) Eosinophils (%) (Auto) 0.0 % (0.0-3.0) Basophils (%) (Auto) 0.5 % (0.0-2.0) Prothrombin Time 12.2 SEC (9.30-11.50) H Prothromb Time International Ratio 1.2 (0.9-1.1) H Activated Partial Thromboplast Time 19 SEC (23-33) L Sodium Level 139 MMOL/L (136-145) Potassium Level 4.4 MMOL/L (3.5-5.1) Chloride Level 101 MMOL/L (98-107) Carbon Dioxide Level 27 MMOL/L (21-32) Anion Gap 12 mmol/L (5-15) Blood Urea Nitrogen 9 mg/dL (7-18) Creatinine 0.8 MG/DL (0.55-1.30) Estimat Glomerular Filtration Rate > 60 mL/min (>60) Glucose Level 115 MG/DL (74-106) H Calcium Level 9.1 MG/DL (8.5-10.1) Total Bilirubin 1.1 MG/DL (0.2-1.0) H Direct Bilirubin 0.1 MG/DL (0.0-0.3) Aspartate Amino Transf (AST/SGOT) 44 U/L (15-37) H Alanine Aminotransferase (ALT/SGPT) 25 U/L (12-78) Alkaline Phosphatase 90 U/L (46-116) Total Protein 8.6 G/DL (6.4-8.2) H Albumin 4.0 G/DL (3.4-5.0) Globulin 4.6 g/dL Albumin/Globulin Ratio 0.9 (1.0-2.7) L Lipase 273 U/L (73-393) Human Chorionic Gonadotropin, Qual Negative (NEGATIVE) Urine Color Pale yellow Urine Appearance Clear Urine pH 7 (4.5-8.0) Urine Specific [place] 1.010 (1.005-1.035) Urine Protein Negative (NEGATIVE) Urine Glucose (UA) Negative (NEGATIVE) Urine Ketones Negative (NEGATIVE) Urine Blood 3+ (NEGATIVE) H Urine Nitrite Negative (NEGATIVE) Urine Bilirubin Negative (NEGATIVE) Urine Urobilinogen Normal MG/DL (0.0-1.0) Urine Leukocyte Esterase Negative (NEGATIVE) Urine RBC 2-4 /HPF (0 - 2) H Urine WBC 0-2 /HPF (0 - 2) Urine Squamous Epithelial Cells Few /LPF (NONE/OCC) Urine Bacteria None /HPF (NONE) Urine HCG, Qualitative Negative (NEGATIVE) Height (Feet): 5 Height (Inches): 7.00 Weight (Pounds): 192 Medications Current Medications Medications (Trade) Dose Ordered Sig/Chelly Route PRN Reason Start Time Stop Time Status Last Admin Dose Admin Cefazolin Sodium 1 gm/Dextrose 55 ml @ 110 mls/hr Q8HR IVPB 09/10/19 14:00 09/17/19 13:59 09/10/19 13:43 Hydromorphone HCl (Dilaudid) 1 mg Q3HR PRN IVP For mild pain 09/10/19 10:30 09/17/19 10:29 Hydromorphone HCl (Dilaudid) 2 mg Q2HR PRN IVP For severe pain 09/10/19 10:30 09/17/19 10:29 Hydromorphone HCl (Dilaudid) 2 mg Q3HR PRN IVP For moderate pain 09/10/19 10:30 09/17/19 10:29 09/10/19 11:26 Iohexol (OMNIPAQUE-300 100ml) 100 ml NOW PRN INJ Radiology Procedure 09/10/19 04:30 09/12/19 04:27 Ondansetron HCl (Zofran) 4 mg Q6H PRN IVP Nausea & Vomiting 09/10/19 10:30 10/10/19 10:29 Potassium Chloride 20 meq/ Dextrose/Lactated Ringer's 1,010 ml @ 120 mls/hr Q8H25M IV 09/10/19 12:00 10/10/19 11:59 09/10/19 11:51 Assessment/Plan Problem List: (1) Abdominal pain Assessment & Plan: This is a very pleasant 28-year-old female status post uterine artery embolization who presents with abdominal pain acutely. No nausea vomiting fever chills. Labs okay. Imaging noted. Abdominal exam fairly benign but does have some discomfort. Pain improved with appropriate pain management. No acute surgical intervention indicated recommended at this time. Unlikely appendicitis or other bowel or acute abdominal injury. Pain does seem relatively consistent with would be anticipated for her given history. Patient states she is slowly feeling better able to tolerate diet ambulatory. Passing flatus having bowel movements. Will follow with serial abdominal exams. No surgical plan for now. Thank you for let me participate in patient's care. We will follow with recommendations. CT as below. Subcentimeter subpleural nodular densities noted in the lung bases measuring less than 5 mm. These may be related to atelectatic changes versus pulmonary nodules. No focal consolidation. No pleural effusion or pneumothorax. Partially imaged heart normal in size. High attenuation material is noted within the gallbladder raising question for vicarious excretion of contrast. Correlate for this degree of prior contrast administration. No pericholecystic inflammatory changes. No biliary ductal dilatation. No focal hepatic mass lesion appreciated on this single phase exam. Liver contour appears smooth. Spleen, adrenal glands and pancreas unremarkable. Kidneys enhance symmetrically. There is no urinary tract stone. No perinephric stranding. The uterus is markedly enlarged with multiple heterogeneous masses, the largest in the anterior myometrium with smaller masses noted in the posterior myometrium and fundus. Masses demonstrate some internal high attenuation components and branching foci of air which may related to fibroid embolization and correlation with history is recommended. There is no evidence of free intraperitoneal air or fluid. No evidence of bowel obstruction. Appendix is normal in caliber. No periappendiceal inflammatory changes. Abdominal aorta normal in caliber. No pathologically enlarged lymphadenopathy. There is a small fat-containing umbilical hernia. There is no acute osseous abnormality. IMPRESSION: * Markedly enlarged and lobulated uterus with multiple heterogeneous masses suggesting fibroids. High attenuation material within these presumed fibroids may represent areas of hemorrhage and/or retained contrast from prior contrast load, especially as there is branching foci of air within these masses which may suggest recent endovascular intervention such as fibroid embolization. Correlation with history is recommended. * High density material noted within the gallbladder lumen suggesting vicarious excretion of contrast. No pericholecystic inflammatory changes. * Subcentimeter pleural-based nodular densities which may related to atelectatic changes or pulmonary nodules. These measure less than 5 mm. No routine imaging follow-up is recommended per Fleischner Society criteria guidelines if patient is considered low risk for lung cancer. If the patient is considered high risk consider follow-up CT scan in 12 months. ICD Codes: R10.9 - Unspecified abdominal pain SNOMED: [id number] Juan Jose Youssef Sep 10, 2019 15:57
--- NOTE | 2019-09-10 16:16 | NUR ---
NURSE NOTES: DR WHELAN MADE AWARE OF NEW ADMISSION AND PER DR WHELAN, DR HAY WILL BE WORKING WITH MD AND NO NEW ORDERS RECEIVED. PT RESTING IN BED. STATES PAIN IS 2/10. IN NO APPARENT DISTRESS AT THIS TIME. WILL CONTINUE TO MONITOR.
[2019-09-10] MEDS: HYDROcodone/Acetamin 5/325 tab ORAL PRN (18:44)
--- NOTE | 2019-09-10 19:43 | NUR ---
HAND-OFF: Report given to Julianne CISSE RN.
--- NOTE | 2019-09-10 19:43 | NUR ---
NURSE NOTES: received patient on bed, awake and verbally responsive. no sob. no pain at the moment.family at the bedside. reiterated to call or ask for assistance. bed locked and in lowest position. call light and light button within easy reach. will continue plan of care.
--- NOTE | 2019-09-10 22:03 | NUR ---
NURSE NOTES: Received a phone call from md to d/c iv fluids to heplock iv and advance diet to full liquid diet. noted and carried out.
[2019-09-11 04:00] VITALS: BP 154/106
[2019-09-11] MEDS: ceFAZolin sod 1 GM in D5W 55 ML IVPB SCH ×3 (05:39→21:32)
[2019-09-11 06:32] LABS: BASOPHILS % (AUTO) 0.4 % (0.0-2.0); EOSINOPHILS % (AUTO) 0.5 % (0.0-3.0); HEMATOCRIT 34.8 % (37.0-47.0); HEMOGLOBIN 11.5 G/DL (12.0-16.0); MEAN CORPUSCULAR VOLUME 91 FL (80-99); MONOCYTES % (AUTO) 6.4 % (1.0-10.0); NEUTROPHILS % (AUTO) 78.7 % (45.0-75.0); PLATELET COUNT 165 K/UL (150-450); RED BLOOD COUNT 3.83 M/UL (4.20-5.40); RED CELL DISTRIBUTION WIDTH 10.9 % (11.6-14.8); WHITE BLOOD COUNT 8.5 K/UL (4.8-10.8)
[2019-09-11 07:15] LABS: ALANINE AMINOTRANSFERASE 20 U/L (12-78); ALBUMIN 3.4 G/DL (3.4-5.0); ALBUMIN/GLOBULIN RATIO 0.9 (1.0-2.7); ALKALINE PHOSPHATASE 82 U/L (46-116); ANION GAP 9 mmol/L (5-15); ASPARTATE AMINO TRANSFERASE 24 U/L (15-37); BILIRUBIN,TOTAL 1.1 MG/DL (0.2-1.0); BLOOD UREA NITROGEN 7 mg/dL (7-18); CALCIUM 8.5 MG/DL (8.5-10.1); CARBON DIOXIDE 26 MMOL/L (21-32); CHLORIDE 105 MMOL/L (98-107); POTASSIUM 3.5 MMOL/L (3.5-5.1); SODIUM 140 MMOL/L (136-145)
--- NOTE | 2019-09-11 07:20 | NUR ---
HAND-OFF: Report given to Leah Vaca RN. Pt in stable condition.
[2019-09-11 07:24] LABS: BILIRUBIN,DIRECT 0.2 MG/DL (0.0-0.3)
--- NOTE | 2019-09-11 07:27 | NUR ---
NURSE NOTES: received report from YVONNE Travis. patient in bed. alert. oriented. verbally responsive. no respiratory distress noted. no c/o pain at this time. surgical site dressing intact. IV on LH saline lock. intact. ambulatory. bed in the lowest position and locked. call light within reach. will continue to provide plan of care.
--- NOTE | 2019-09-11 07:55 | NUR ---
NURSE NOTES: received call from Nacho Devlin. new order MOM 30cc BID for bowel movement. encourage patient to ambulate. no passing gas at this time. order read back. order noted and carried out.
[2019-09-11 08:00] VITALS: BP 139/104
[2019-09-11] MEDS: Milk of Magnesia 30ml Ud ORAL SCH ×2 (08:41→17:40)
--- NOTE | 2019-09-11 08:56 | Pulmonology Progress Note ---
Assessment/Plan Assessment/Plan Problem List: * Abdominal pain, post-operative * Uterine artery embolization 09/09/19 * Uterine fibroids * Asthma w/o acute exacerbation * subcentimeter pulmonary nodules CT abdomen/pelvis lung cuts 09/10/19 Plan: * pain control * IVF * PO as tolerated * monitor breathing * advised to ambulate * low risk pulmonary patient, no need to f/u subcentimeter pulmonary micronodules Subjective ROS Limited/Unobtainable: No Interval Events: Still w/ abdominal pain. No passing of gas or BM since sunday Allergies: Coded Allergies: No Known Allergies (Unverified , 09/10/19) Objective Last 24 Hour Vital Signs Date Time Temp Pulse Resp B/P (MAP) Pulse Ox O2 Delivery O2 Flow Rate FiO2 09/11/19 08:00 98.7 79 18 139/104 (116) 98 09/11/19 04:00 100.2 88 18 154/106 (122) 95 09/10/19 23:52 100.2 92 16 155/93 (113) 94 09/10/19 21:00 Room Air 09/10/19 20:00 99.2 88 18 145/86 (105) 94 09/10/19 16:00 99.0 81 148/98 (115) 09/10/19 13:48 97.8 88 138/88 (105) 09/10/19 13:08 Room Air 09/10/19 11:17 98.4 98 150/93 (112) 09/10/19 11:00 98.7 80 19 135/86 96 Room Air 09/10/19 10:15 98.5 77 15 124/93 100 Room Air Intake and Output 09/10/19 09/11/19 19:00 07:00 Intake Total 1015 ml 820 ml Balance 1015 ml 820 ml Intake Oral 360 ml 600 ml IV Total 655 ml 220 ml # Voids 2 2 General Appearance: no acute distress HEENT: mucous membranes moist Respiratory/Chest: lungs clear Cardiovascular: normal rate, regular rhythm Abdomen: distended, tender Extremities: no edema Laboratory Tests 09/11/19 05:20: White Blood Count 8.5, Red Blood Count 3.83L, Hemoglobin 11.5L, Hematocrit 34.8L , Mean Corpuscular Volume 91, Mean Corpuscular Hemoglobin 30.1, Mean Corpuscular Hemoglobin Concent 33.1, Red Cell Distribution Width 10.9L, Platelet Count 165, Mean Platelet Volume 7.6, Neutrophils (%) (Auto) 78.7H, Lymphocytes (%) (Auto) 14.0L, Monocytes (%) (Auto) 6.4, Eosinophils (%) (Auto) 0.5, Basophils (%) (Auto) 0.4, Sodium Level 140, Potassium Level 3.5, Chloride Level 105, Carbon Dioxide Level 26, Anion Gap 9, Blood Urea Nitrogen 7, Creatinine 1.0, Estimat Glomerular Filtration Rate > 60, Glucose Level 102, Calcium Level 8.5, Total Bilirubin 1.1H, Direct Bilirubin 0.2, Aspartate Amino Transf (AST/SGOT) 24, Alanine Aminotransferase (ALT/SGPT) 20, Alkaline Phosphatase 82, Total Protein 7.2, Albumin 3.4, Globulin 3.8, Albumin/Globulin Ratio 0.9L Current Medications Medications (Trade) Dose Ordered Sig/Chelly Route PRN Reason Start Time Stop Time Status Last Admin Dose Admin Acetaminophen/ Hydrocodone Bitart ([place] 5/325) 1 tab Q3H PRN ORAL Mild Pain (Pain Scale 1-3) 09/10/19 17:00 09/17/19 16:59 09/10/19 18:44 Cefazolin Sodium 1 gm/Dextrose 55 ml @ 110 mls/hr Q8HR IVPB 09/10/19 14:00 09/17/19 13:59 09/11/19 05:39 Hydromorphone HCl (Dilaudid) 1 mg Q3HR PRN IVP For mild pain 09/10/19 10:30 09/17/19 10:29 Hydromorphone HCl (Dilaudid) 2 mg Q2HR PRN IVP For severe pain 09/10/19 10:30 09/17/19 10:29 Hydromorphone HCl (Dilaudid) 2 mg Q3HR PRN IVP For moderate pain 09/10/19 10:30 09/17/19 10:29 09/11/19 08:42 Iohexol (OMNIPAQUE-300 100ml) 100 ml NOW PRN INJ Radiology Procedure 09/10/19 04:30 09/12/19 04:27 Magnesium Hydroxide (Mom) 30 ml BID ORAL 09/11/19 09:00 10/11/19 08:59 09/11/19 08:41 Ondansetron HCl (Zofran) 4 mg Q6H PRN IVP Nausea & Vomiting 09/10/19 10:30 10/10/19 10:29 Nahid Hatch MD Sep 11, 2019 08:56
[2019-09-11 12:00] VITALS: BP 157/96
[2019-09-11] MEDS ORDERED: Fleet's Enema 133ml RECTAL SCH (12:27)
--- NOTE | 2019-09-11 12:30 | General Surgery Progress Note ---
General Surgery-Progress Note Subjective Procedure Performed uterine artery embolization Symptoms: improved, tolerating diet, voiding well Objective Last 24 Hour Vital Signs Date Time Temp Pulse Resp B/P (MAP) Pulse Ox O2 Delivery O2 Flow Rate FiO2 09/11/19 09:00 Room Air 09/11/19 08:00 98.7 79 18 139/104 (116) 98 09/11/19 04:00 100.2 88 18 154/106 (122) 95 09/10/19 23:52 100.2 92 16 155/93 (113) 94 09/10/19 21:00 Room Air 09/10/19 20:00 99.2 88 18 145/86 (105) 94 09/10/19 16:00 99.0 81 148/98 (115) 09/10/19 13:48 97.8 88 138/88 (105) 09/10/19 13:08 Room Air I&O Intake and Output 09/10/19 09/11/19 19:00 07:00 Intake Total 1015 ml 820 ml Balance 1015 ml 820 ml Intake Oral 360 ml 600 ml IV Total 655 ml 220 ml # Voids 2 2 Dressing: dry Wound: clean Drains: none Cardiovascular: RSR Respiratory: clear Abdomen: soft, flat, scaphoid, tenderness, decreased bowel sounds Extremities: no edema, no tenderness, no cyanosis Laboratory Tests Test 09/11/19 05:20 White Blood Count 8.5 K/UL (4.8-10.8) Red Blood Count 3.83 M/UL (4.20-5.40) L Hemoglobin 11.5 G/DL (12.0-16.0) L Hematocrit 34.8 % (37.0-47.0) L Mean Corpuscular Volume 91 FL (80-99) Mean Corpuscular Hemoglobin 30.1 PG (27.0-31.0) Mean Corpuscular Hemoglobin Concent 33.1 G/DL (32.0-36.0) Red Cell Distribution Width 10.9 % (11.6-14.8) L Platelet Count 165 K/UL (150-450) Mean Platelet Volume 7.6 FL (6.5-10.1) Neutrophils (%) (Auto) 78.7 % (45.0-75.0) H Lymphocytes (%) (Auto) 14.0 % (20.0-45.0) L Monocytes (%) (Auto) 6.4 % (1.0-10.0) Eosinophils (%) (Auto) 0.5 % (0.0-3.0) Basophils (%) (Auto) 0.4 % (0.0-2.0) Sodium Level 140 MMOL/L (136-145) Potassium Level 3.5 MMOL/L (3.5-5.1) Chloride Level 105 MMOL/L (98-107) Carbon Dioxide Level 26 MMOL/L (21-32) Anion Gap 9 mmol/L (5-15) Blood Urea Nitrogen 7 mg/dL (7-18) Creatinine 1.0 MG/DL (0.55-1.30) Estimat Glomerular Filtration Rate > 60 mL/min (>60) Glucose Level 102 MG/DL (74-106) Calcium Level 8.5 MG/DL (8.5-10.1) Total Bilirubin 1.1 MG/DL (0.2-1.0) H Direct Bilirubin 0.2 MG/DL (0.0-0.3) Aspartate Amino Transf (AST/SGOT) 24 U/L (15-37) Alanine Aminotransferase (ALT/SGPT) 20 U/L (12-78) Alkaline Phosphatase 82 U/L (46-116) Total Protein 7.2 G/DL (6.4-8.2) Albumin 3.4 G/DL (3.4-5.0) Globulin 3.8 g/dL Albumin/Globulin Ratio 0.9 (1.0-2.7) L Additional Comments labs ok. not passing flatus, still taking IV dilaudid Assessment Post-op Diagnosis uncontrolled post procedure pain Plan Additional Comments fleets enema, possible magnesium citrate if no result. Devin Mills MD Sep 11, 2019 12:30
--- NOTE | 2019-09-11 14:11 | NUR ---
*-* INSURANCE *-* ALL CLINICALS AND REVIEWS HAVE BEEN FAXED TO: [facility]:CHARIS [phone] FAX [phone] Work Work Addendum: 09/11/19 at 1421 by FARZANEH BOONE CM REF# [id number]
--- NOTE | 2019-09-11 14:13 | Surgery Progress Note ---
Surgery Progress Note Subjective Symptoms: improved, tolerating diet, voiding well, passing flatus, pain decreased Additional Comments still with pain improved a bit not controlled for d/c yet Objective Last 24 Hour Vital Signs Date Time Temp Pulse Resp B/P (MAP) Pulse Ox O2 Delivery O2 Flow Rate FiO2 09/11/19 12:00 98.2 93 18 157/96 (116) 96 09/11/19 09:00 Room Air 09/11/19 08:00 98.7 79 18 139/104 (116) 98 09/11/19 04:00 100.2 88 18 154/106 (122) 95 09/10/19 23:52 100.2 92 16 155/93 (113) 94 09/10/19 21:00 Room Air 09/10/19 20:00 99.2 88 18 145/86 (105) 94 09/10/19 16:00 99.0 81 148/98 (115) I&O Intake and Output 09/10/19 09/11/19 19:00 07:00 Intake Total 1015 ml 820 ml Balance 1015 ml 820 ml Intake Oral 360 ml 600 ml IV Total 655 ml 220 ml # Voids 2 2 Cardiovascular: RSR Respiratory: clear Abdomen: soft, tenderness, present bowel sounds, other - mass effect, non- distended Extremities: no edema, no tenderness, no cyanosis Laboratory Tests Test 09/11/19 05:20 White Blood Count 8.5 K/UL (4.8-10.8) Red Blood Count 3.83 M/UL (4.20-5.40) L Hemoglobin 11.5 G/DL (12.0-16.0) L Hematocrit 34.8 % (37.0-47.0) L Mean Corpuscular Volume 91 FL (80-99) Mean Corpuscular Hemoglobin 30.1 PG (27.0-31.0) Mean Corpuscular Hemoglobin Concent 33.1 G/DL (32.0-36.0) Red Cell Distribution Width 10.9 % (11.6-14.8) L Platelet Count 165 K/UL (150-450) Mean Platelet Volume 7.6 FL (6.5-10.1) Neutrophils (%) (Auto) 78.7 % (45.0-75.0) H Lymphocytes (%) (Auto) 14.0 % (20.0-45.0) L Monocytes (%) (Auto) 6.4 % (1.0-10.0) Eosinophils (%) (Auto) 0.5 % (0.0-3.0) Basophils (%) (Auto) 0.4 % (0.0-2.0) Sodium Level 140 MMOL/L (136-145) Potassium Level 3.5 MMOL/L (3.5-5.1) Chloride Level 105 MMOL/L (98-107) Carbon Dioxide Level 26 MMOL/L (21-32) Anion Gap 9 mmol/L (5-15) Blood Urea Nitrogen 7 mg/dL (7-18) Creatinine 1.0 MG/DL (0.55-1.30) Estimat Glomerular Filtration Rate > 60 mL/min (>60) Glucose Level 102 MG/DL (74-106) Calcium Level 8.5 MG/DL (8.5-10.1) Total Bilirubin 1.1 MG/DL (0.2-1.0) H Direct Bilirubin 0.2 MG/DL (0.0-0.3) Aspartate Amino Transf (AST/SGOT) 24 U/L (15-37) Alanine Aminotransferase (ALT/SGPT) 20 U/L (12-78) Alkaline Phosphatase 82 U/L (46-116) Total Protein 7.2 G/DL (6.4-8.2) Albumin 3.4 G/DL (3.4-5.0) Globulin 3.8 g/dL Albumin/Globulin Ratio 0.9 (1.0-2.7) L Plan Problems: (1) Abdominal pain Assessment & Plan: This is a very pleasant 28-year-old female status post uterine artery embolization who presents with abdominal pain acutely. No nausea vomiting fever chills. Labs okay. Imaging noted. Abdominal exam fairly benign but does have some discomfort. Pain improved with appropriate pain management. No acute surgical intervention indicated recommended at this time. Unlikely appendicitis or other bowel or acute abdominal injury. Pain does seem relatively consistent with would be anticipated for her given history. Patient states she is slowly feeling better able to tolerate diet ambulatory. Passing flatus having bowel movements. Will follow with serial abdominal exams. No surgical plan for now. Thank you for let me participate in patient's care. We will follow with recommendations. CT as below. improving needs better pain control d/c planning Subcentimeter subpleural nodular densities noted in the lung bases measuring less than 5 mm. These may be related to atelectatic changes versus pulmonary nodules. No focal consolidation. No pleural effusion or pneumothorax. Partially imaged heart normal in size. High attenuation material is noted within the gallbladder raising question for vicarious excretion of contrast. Correlate for this degree of prior contrast administration. No pericholecystic inflammatory changes. No biliary ductal dilatation. No focal hepatic mass lesion appreciated on this single phase exam. Liver contour appears smooth. Spleen, adrenal glands and pancreas unremarkable. Kidneys enhance symmetrically. There is no urinary tract stone. No perinephric stranding. The uterus is markedly enlarged with multiple heterogeneous masses, the largest in the anterior myometrium with smaller masses noted in the posterior myometrium and fundus. Masses demonstrate some internal high attenuation components and branching foci of air which may related to fibroid embolization and correlation with history is recommended. There is no evidence of free intraperitoneal air or fluid. No evidence of bowel obstruction. Appendix is normal in caliber. No periappendiceal inflammatory changes. Abdominal aorta normal in caliber. No pathologically enlarged lymphadenopathy. There is a small fat-containing umbilical hernia. There is no acute osseous abnormality. IMPRESSION: * Markedly enlarged and lobulated uterus with multiple heterogeneous masses suggesting fibroids. High attenuation material within these presumed fibroids may represent areas of hemorrhage and/or retained contrast from prior contrast load, especially as there is branching foci of air within these masses which may suggest recent endovascular intervention such as fibroid embolization. Correlation with history is recommended. * High density material noted within the gallbladder lumen suggesting vicarious excretion of contrast. No pericholecystic inflammatory changes. * Subcentimeter pleural-based nodular densities which may related to atelectatic changes or pulmonary nodules. These measure less than 5 mm. No routine imaging follow-up is recommended per Fleischner Society criteria guidelines if patient is considered low risk for lung cancer. If the patient is considered high risk consider follow-up CT scan in 12 months. Juan Jose Youssef Sep 11, 2019 14:13
[2019-09-11 16:00] VITALS: BP 157/102
--- NOTE | 2019-09-11 19:03 | NUR ---
HAND-OFF: Report given to YVONNE Jansen.
--- NOTE | 2019-09-11 19:30 | NUR ---
NURSE NOTES: Initial round made, per pt small bowel movement, but not passing gas. Per YVONNE Lynn. given during report, pt is passing. gas.
--- NOTE | 2019-09-11 19:45 | NUR ---
NURSE NOTES: Received report from YVONNE Lynn. Received pt sitting up bed, AOx4, c/o 9/10 abdominal pain. Will medicate for pain as needed. No distress noted. Bed in lowest position and locked, side rails up x 2, call light within reach. Will continue to monitor.
[2019-09-11 20:00] VITALS: BP 151/97
[2019-09-11 23:55] VITALS: BP 153/102
[2019-09-12 04:00] VITALS: BP 153/92
[2019-09-12] MEDS: ceFAZolin sod 1 GM in D5W 55 ML IVPB SCH ×3 (05:08→21:24)
[2019-09-12 06:38] LABS: ALANINE AMINOTRANSFERASE 21 U/L (12-78); ALBUMIN 3.3 G/DL (3.4-5.0); ALBUMIN/GLOBULIN RATIO 0.8 (1.0-2.7); ALKALINE PHOSPHATASE 77 U/L (46-116); ANION GAP 7 mmol/L (5-15); ASPARTATE AMINO TRANSFERASE 32 U/L (15-37); BILIRUBIN,TOTAL 1.1 MG/DL (0.2-1.0); BLOOD UREA NITROGEN 8 mg/dL (7-18); CALCIUM 8.7 MG/DL (8.5-10.1); CARBON DIOXIDE 27 MMOL/L (21-32); CHLORIDE 103 MMOL/L (98-107); CREATININE 0.8 MG/DL (0.55-1.30); POTASSIUM 3.7 MMOL/L (3.5-5.1); SODIUM 137 MMOL/L (136-145)
[2019-09-12 06:40] LABS: BILIRUBIN,DIRECT 0.1 MG/DL (0.0-0.3); EOSINOPHILS % (AUTO) 0.8 % (0.0-3.0); HEMATOCRIT 37.1 % (37.0-47.0); HEMOGLOBIN 12.4 G/DL (12.0-16.0); LYMPHOCYTES % (AUTO) 15.4 % (20.0-45.0); MEAN CORPUSCULAR VOLUME 90 FL (80-99); MONOCYTES % (AUTO) 9.2 % (1.0-10.0); NEUTROPHILS % (AUTO) 73.5 % (45.0-75.0); PLATELET COUNT 180 K/UL (150-450); RED BLOOD COUNT 4.13 M/UL (4.20-5.40); RED CELL DISTRIBUTION WIDTH 10.8 % (11.6-14.8); WHITE BLOOD COUNT 8.2 K/UL (4.8-10.8)
--- NOTE | 2019-09-12 07:38 | NUR ---
HAND-OFF: Report given to YVONNE Durham. Pt in stable condition.
[2019-09-12 08:00] VITALS: BP 147/93
[2019-09-12] MEDS ORDERED: Magnesium Citrate Liq Btl ORAL SCH (08:00)
[2019-09-12] MEDS: Milk of Magnesia 30ml Ud ORAL SCH ×2 (08:52→18:00)
--- NOTE | 2019-09-12 11:41 | General Progress Note ---
Assessment/Plan Problem List: (1) Postoperative pain ICD Codes: G89.18 - Other acute postprocedural pain SNOMED: 897552323 (2) Abdominal pain ICD Codes: R10.9 - Unspecified abdominal pain SNOMED: 02015325 Qualifiers: Qualified Codes: R10.84 - Generalized abdominal pain Assessment/Plan: bowel regimen simethicone bentyl prn kub fu labs fu surg recs Subjective ROS Limited/Unobtainable: Yes Allergies: Coded Allergies: No Known Allergies (Unverified , 09/10/19) Objective Last 24 Hour Vital Signs Date Time Temp Pulse Resp B/P (MAP) Pulse Ox O2 Delivery O2 Flow Rate FiO2 09/12/19 08:00 100.1 79 18 147/93 (111) 96 09/12/19 07:44 98.4 09/12/19 04:00 98.4 88 18 153/92 (112) 96 09/11/19 23:55 98.8 88 18 153/102 (119) 99 09/11/19 21:00 Room Air 09/11/19 20:00 98.2 92 17 151/97 (115) 96 09/11/19 16:00 98.2 92 18 157/102 (120) 97 09/11/19 12:00 98.2 93 18 157/96 (116) 96 Intake and Output 09/11/19 09/12/19 19:00 07:00 Intake Total 770 ml 230 ml Balance 770 ml 230 ml Intake Oral 660 ml 120 ml IV Total 110 ml 110 ml # Voids 3 1 # Bowel Movements 1 Laboratory Tests 09/12/19 05:10: White Blood Count 8.2, Red Blood Count 4.13L, Hemoglobin 12.4, Hematocrit 37.1, Mean Corpuscular Volume 90, Mean Corpuscular Hemoglobin 30.0, Mean Corpuscular Hemoglobin Concent 33.4, Red Cell Distribution Width 10.8L, Platelet Count 180, Mean Platelet Volume 8.5, Neutrophils (%) (Auto) 73.5, Lymphocytes (%) (Auto) 15.4L, Monocytes (%) (Auto) 9.2, Eosinophils (%) (Auto) 0.8, Basophils (%) (Auto ) 1.0, Sodium Level 137, Potassium Level 3.7, Chloride Level 103, Carbon Dioxide Level 27, Anion Gap 7, Blood Urea Nitrogen 8, Creatinine 0.8, Estimat Glomerular Filtration Rate > 60, Glucose Level 107H, Calcium Level 8.7, Total Bilirubin 1.1H, Direct Bilirubin 0.1, Aspartate Amino Transf (AST/SGOT) 32, Alanine Aminotransferase (ALT/SGPT) 21, Alkaline Phosphatase 77, Total Protein 7.4, Albumin 3.3L, Globulin 4.1, Albumin/Globulin Ratio 0.8L Height (Feet): 5 Height (Inches): 7.00 Weight (Pounds): 192 General Appearance: alert EENT: normal ENT inspection Neck: supple Cardiovascular: tachycardia Respiratory/Chest: lungs clear Abdomen: hypoactive bowel sounds, distended, tender Extremities: non-tender Maxwell Nelson MD Sep 12, 2019 11:41
[2019-09-12 12:00] VITALS: BP 142/98
--- NOTE | 2019-09-12 12:59 | NUR ---
RADIOLOGY DEPT., ABDOMEN X-RAY DONE.-P.DYE
[2019-09-12] MEDS ORDERED: Simethicone 80mg tab ORAL ONE (13:00)
--- NOTE | 2019-09-12 14:18 | Pulmonology Progress Note ---
Assessment/Plan Assessment/Plan Problem List: * Abdominal pain, post-operative * Uterine artery embolization 09/09/19 * Uterine fibroids * Asthma w/o acute exacerbation * subcentimeter pulmonary nodules CT abdomen/pelvis lung cuts 09/10/19 Plan: * pain control * IVF * PO as tolerated * monitor breathing * advised to ambulate * low risk pulmonary patient, no need to f/u subcentimeter pulmonary micronodules Subjective ROS Limited/Unobtainable: No Interval Events: Sleepy from pain meds. Had a loose BM. Still pain at times Constitutional: Reports: no symptoms HEENT: Repors: no symptoms Respiratory: Reports: no symptoms Cardiovascular: Reports: no symptoms Gastrointestinal/Abdominal: Reports: constipation Genitourinary: Reports: no symptoms Neurologic: Reports: no symptoms Psychiatric: Reports: no symptoms Skin: Reports: no symptoms Endocrine: Reports: no symptoms Musculoskeletal: Reports: no symptoms Allergies: Coded Allergies: No Known Allergies (Unverified , 09/10/19) Objective Last 24 Hour Vital Signs Date Time Temp Pulse Resp B/P (MAP) Pulse Ox O2 Delivery O2 Flow Rate FiO2 09/12/19 12:05 100.1 09/12/19 12:00 Room Air 09/12/19 12:00 98.1 90 20 142/98 (113) 99 09/12/19 08:00 100.1 79 18 147/93 (111) 96 09/12/19 07:44 98.4 09/12/19 04:00 98.4 88 18 153/92 (112) 96 09/11/19 23:55 98.8 88 18 153/102 (119) 99 09/11/19 21:00 Room Air 09/11/19 20:00 98.2 92 17 151/97 (115) 96 09/11/19 16:00 98.2 92 18 157/102 (120) 97 Intake and Output 09/11/19 09/12/19 18:59 06:59 Intake Total 770 ml 230 ml Balance 770 ml 230 ml Intake Oral 660 ml 120 ml IV Total 110 ml 110 ml # Voids 3 1 # Bowel Movements 1 General Appearance: no acute distress HEENT: mucous membranes moist Respiratory/Chest: lungs clear Cardiovascular: normal rate Abdomen: tender Extremities: no edema Skin: no rash Neurologic/Psychiatric: oriented x 3 Microbiology Date/Time Source Procedure Growth Status 09/10/19 05:55 Nasal Nares MRSA Culture - Final NO METHICILLIN RESISTANT STAPH AUREUS... Complete 09/10/19 05:55 Rectum VRE Culture - Final NO VANCOMYCIN RESISTANT ENTEROCOCCUS ... Complete Laboratory Tests 09/12/19 05:10: White Blood Count 8.2, Red Blood Count 4.13L, Hemoglobin 12.4, Hematocrit 37.1, Mean Corpuscular Volume 90, Mean Corpuscular Hemoglobin 30.0, Mean Corpuscular Hemoglobin Concent 33.4, Red Cell Distribution Width 10.8L, Platelet Count 180, Mean Platelet Volume 8.5, Neutrophils (%) (Auto) 73.5, Lymphocytes (%) (Auto) 15.4L, Monocytes (%) (Auto) 9.2, Eosinophils (%) (Auto) 0.8, Basophils (%) (Auto ) 1.0, Sodium Level 137, Potassium Level 3.7, Chloride Level 103, Carbon Dioxide Level 27, Anion Gap 7, Blood Urea Nitrogen 8, Creatinine 0.8, Estimat Glomerular Filtration Rate > 60, Glucose Level 107H, Calcium Level 8.7, Total Bilirubin 1.1H, Direct Bilirubin 0.1, Aspartate Amino Transf (AST/SGOT) 32, Alanine Aminotransferase (ALT/SGPT) 21, Alkaline Phosphatase 77, Total Protein 7.4, Albumin 3.3L, Globulin 4.1, Albumin/Globulin Ratio 0.8L Current Medications Medications (Trade) Dose Ordered Sig/Chelly Route PRN Reason Start Time Stop Time Status Last Admin Dose Admin Acetaminophen/ Hydrocodone Bitart ([place] 5/325) 1 tab Q3H PRN ORAL Mild Pain (Pain Scale 1-3) 09/10/19 17:00 09/17/19 16:59 09/10/19 18:44 Cefazolin Sodium 1 gm/Dextrose 55 ml @ 110 mls/hr Q8HR IVPB 09/10/19 14:00 09/17/19 13:59 09/12/19 13:00 Dicyclomine HCl (Bentyl) 10 mg QIDPRN PRN ORAL Abdominal cramps 09/12/19 11:45 10/12/19 11:44 Docusate Sodium (Colace) 100 mg TWICE A DAY ORAL 09/12/19 18:00 10/12/19 17:59 Hydromorphone HCl (Dilaudid) 1 mg Q3HR PRN IVP For mild pain 09/10/19 10:30 09/17/19 10:29 Hydromorphone HCl (Dilaudid) 2 mg Q2HR PRN IVP For severe pain 09/10/19 10:30 09/17/19 10:29 09/12/19 11:35 Hydromorphone HCl (Dilaudid) 2 mg Q3HR PRN IVP For moderate pain 09/10/19 10:30 09/17/19 10:29 09/12/19 07:14 Magnesium Hydroxide (Mom) 30 ml BID ORAL 09/11/19 09:00 10/11/19 08:59 09/11/19 17:40 Ondansetron HCl (Zofran) 4 mg Q6H PRN IVP Nausea & Vomiting 09/10/19 10:30 10/10/19 10:29 Polyethylene Glycol (Miralax) 17 gm BEDTIME ORAL 09/12/19 21:00 10/12/19 20:59 Nahid Hatch MD Sep 12, 2019 14:18
--- NOTE | 2019-09-12 15:11 | NUR ---
*-* INSURANCE *-* ALL CLINICALS AND REVIEWS HAVE BEEN FAXED TO: [facility] NCM:CHARIS [phone] FAX [phone] Work Work REF# [id number]
--- NOTE | 2019-09-12 15:16 | NUR ---
CASE MANAGEMENT: INITIAL REVIEW 28YR OLD FEMALE FROM HOME CC: ABD PAIN, POSTOPERATIVE PAIN SI:POST OPERATIVE PAIN FROM UTERINE ARTERY EMBOLIZATION 98.3 98 18 135/80 98% ON RA IS:IV MORPHIN SULFATE X2 IV TORADOL X1 KCL/D5 BOLUS X1 \:3E MED SURG UNIT DCP: HOME WHEN STABLE CASE MANAGEMENT: REVIEW 09/11/2019 SI:POST OPERATIVE PAIN FROM UTERINE ARTERY EMBOLIZATION 100.2 88 18 156/106 95% ON RA H/H 11.5/34.8 TBIL 1.1 IS:IV ANCEF Q8HR MYLICON PO X1 MG CITRATE PO X1 IV DILAUDID Q2HR/PRN \:3E MED SURG UNIT DCP: HOME WHEN STABLE CASE MANAGEMENT: REVIEW 09/12/2019 SI:POST OPERATIVE PAIN FROM UTERINE ARTERY EMBOLIZATION 100.1 79 18 147/93 96% ON RA TBIL 1.1 IS:IV ANCEF Q8HR MYLICON PO X1 MG CITRATE PO X1 IV DILAUDID Q2HR/PRN \:3E MED SURG UNIT DCP: HOME WHEN STABLE PLAN: ENEMA ABD [id number]
--- NOTE | 2019-09-12 15:43 | Diagnostic Imaging Report ---
Indication: Abdominal pain Technique: Supine view of the abdomen Comparison: none Findings: Unremarkable bowel gas pattern. No masses or unusual calcifications. Impression: Negative
[2019-09-12 16:00] VITALS: BP 146/92
--- NOTE | 2019-09-12 16:20 | General Surgery Progress Note ---
General Surgery-Progress Note Subjective Procedure Performed uterine artery embolization Symptoms: pain same, tolerating diet, voiding well, passing flatus Objective Last 24 Hour Vital Signs Date Time Temp Pulse Resp B/P (MAP) Pulse Ox O2 Delivery O2 Flow Rate FiO2 09/12/19 12:05 100.1 09/12/19 12:00 Room Air 09/12/19 12:00 98.1 90 20 142/98 (113) 99 09/12/19 08:00 100.1 79 18 147/93 (111) 96 09/12/19 07:44 98.4 09/12/19 04:00 98.4 88 18 153/92 (112) 96 09/11/19 23:55 98.8 88 18 153/102 (119) 99 09/11/19 21:00 Room Air 09/11/19 20:00 98.2 92 17 151/97 (115) 96 I&O Intake and Output 09/11/19 09/12/19 19:00 07:00 Intake Total 770 ml 230 ml Balance 770 ml 230 ml Intake Oral 660 ml 120 ml IV Total 110 ml 110 ml # Voids 3 1 # Bowel Movements 1 Dressing: dry Wound: clean Drains: none Cardiovascular: RSR Respiratory: clear Abdomen: soft, flat, scaphoid, tenderness, present bowel sounds Extremities: no edema, no tenderness, no cyanosis Laboratory Tests Test 09/12/19 05:10 White Blood Count 8.2 K/UL (4.8-10.8) Red Blood Count 4.13 M/UL (4.20-5.40) L Hemoglobin 12.4 G/DL (12.0-16.0) Hematocrit 37.1 % (37.0-47.0) Mean Corpuscular Volume 90 FL (80-99) Mean Corpuscular Hemoglobin 30.0 PG (27.0-31.0) Mean Corpuscular Hemoglobin Concent 33.4 G/DL (32.0-36.0) Red Cell Distribution Width 10.8 % (11.6-14.8) L Platelet Count 180 K/UL (150-450) Mean Platelet Volume 8.5 FL (6.5-10.1) Neutrophils (%) (Auto) 73.5 % (45.0-75.0) Lymphocytes (%) (Auto) 15.4 % (20.0-45.0) L Monocytes (%) (Auto) 9.2 % (1.0-10.0) Eosinophils (%) (Auto) 0.8 % (0.0-3.0) Basophils (%) (Auto) 1.0 % (0.0-2.0) Sodium Level 137 MMOL/L (136-145) Potassium Level 3.7 MMOL/L (3.5-5.1) Chloride Level 103 MMOL/L (98-107) Carbon Dioxide Level 27 MMOL/L (21-32) Anion Gap 7 mmol/L (5-15) Blood Urea Nitrogen 8 mg/dL (7-18) Creatinine 0.8 MG/DL (0.55-1.30) Estimat Glomerular Filtration Rate > 60 mL/min (>60) Glucose Level 107 MG/DL (74-106) H Calcium Level 8.7 MG/DL (8.5-10.1) Total Bilirubin 1.1 MG/DL (0.2-1.0) H Direct Bilirubin 0.1 MG/DL (0.0-0.3) Aspartate Amino Transf (AST/SGOT) 32 U/L (15-37) Alanine Aminotransferase (ALT/SGPT) 21 U/L (12-78) Alkaline Phosphatase 77 U/L (46-116) Total Protein 7.4 G/DL (6.4-8.2) Albumin 3.3 G/DL (3.4-5.0) L Globulin 4.1 g/dL Albumin/Globulin Ratio 0.8 (1.0-2.7) L Assessment Post-op Diagnosis uncontrolled post procedure pain Plan Additional Comments patient still constipated, GI consult ordered. Devin Mills MD Sep 12, 2019 16:20
--- NOTE | 2019-09-12 17:06 | Surgery Progress Note ---
Surgery Progress Note Subjective Symptoms: pain same, tolerating diet Additional Comments constipated still with pain Objective Last 24 Hour Vital Signs Date Time Temp Pulse Resp B/P (MAP) Pulse Ox O2 Delivery O2 Flow Rate FiO2 09/12/19 12:05 100.1 09/12/19 12:00 Room Air 09/12/19 12:00 98.1 90 20 142/98 (113) 99 09/12/19 08:00 100.1 79 18 147/93 (111) 96 09/12/19 07:44 98.4 09/12/19 04:00 98.4 88 18 153/92 (112) 96 09/11/19 23:55 98.8 88 18 153/102 (119) 99 09/11/19 21:00 Room Air 09/11/19 20:00 98.2 92 17 151/97 (115) 96 I&O Intake and Output 09/11/19 09/12/19 19:00 07:00 Intake Total 770 ml 230 ml Balance 770 ml 230 ml Intake Oral 660 ml 120 ml IV Total 110 ml 110 ml # Voids 3 1 # Bowel Movements 1 Cardiovascular: RSR Respiratory: clear Abdomen: soft, tenderness, present bowel sounds, other, non-distended Extremities: no edema, no tenderness, no cyanosis Laboratory Tests Test 09/12/19 05:10 White Blood Count 8.2 K/UL (4.8-10.8) Red Blood Count 4.13 M/UL (4.20-5.40) L Hemoglobin 12.4 G/DL (12.0-16.0) Hematocrit 37.1 % (37.0-47.0) Mean Corpuscular Volume 90 FL (80-99) Mean Corpuscular Hemoglobin 30.0 PG (27.0-31.0) Mean Corpuscular Hemoglobin Concent 33.4 G/DL (32.0-36.0) Red Cell Distribution Width 10.8 % (11.6-14.8) L Platelet Count 180 K/UL (150-450) Mean Platelet Volume 8.5 FL (6.5-10.1) Neutrophils (%) (Auto) 73.5 % (45.0-75.0) Lymphocytes (%) (Auto) 15.4 % (20.0-45.0) L Monocytes (%) (Auto) 9.2 % (1.0-10.0) Eosinophils (%) (Auto) 0.8 % (0.0-3.0) Basophils (%) (Auto) 1.0 % (0.0-2.0) Sodium Level 137 MMOL/L (136-145) Potassium Level 3.7 MMOL/L (3.5-5.1) Chloride Level 103 MMOL/L (98-107) Carbon Dioxide Level 27 MMOL/L (21-32) Anion Gap 7 mmol/L (5-15) Blood Urea Nitrogen 8 mg/dL (7-18) Creatinine 0.8 MG/DL (0.55-1.30) Estimat Glomerular Filtration Rate > 60 mL/min (>60) Glucose Level 107 MG/DL (74-106) H Calcium Level 8.7 MG/DL (8.5-10.1) Total Bilirubin 1.1 MG/DL (0.2-1.0) H Direct Bilirubin 0.1 MG/DL (0.0-0.3) Aspartate Amino Transf (AST/SGOT) 32 U/L (15-37) Alanine Aminotransferase (ALT/SGPT) 21 U/L (12-78) Alkaline Phosphatase 77 U/L (46-116) Total Protein 7.4 G/DL (6.4-8.2) Albumin 3.3 G/DL (3.4-5.0) L Globulin 4.1 g/dL Albumin/Globulin Ratio 0.8 (1.0-2.7) L Plan Problems: (1) Abdominal pain Assessment & Plan: This is a very pleasant 28-year-old female status post uterine artery embolization who presents with abdominal pain acutely. No nausea vomiting fever chills. Labs okay. Imaging noted. Abdominal exam fairly benign but does have some discomfort. Pain improved with appropriate pain management. No acute surgical intervention indicated recommended at this time. Unlikely appendicitis or other bowel or acute abdominal injury. Pain does seem relatively consistent with would be anticipated for her given history. Patient states she is slowly feeling better able to tolerate diet ambulatory. Passing flatus having bowel movements. Will follow with serial abdominal exams. No surgical plan for now. Thank you for let me participate in patient's care. We will follow with recommendations. CT as below. improving needs better pain control gi eval not ready for d/c Subcentimeter subpleural nodular densities noted in the lung bases measuring less than 5 mm. These may be related to atelectatic changes versus pulmonary nodules. No focal consolidation. No pleural effusion or pneumothorax. Partially imaged heart normal in size. High attenuation material is noted within the gallbladder raising question for vicarious excretion of contrast. Correlate for this degree of prior contrast administration. No pericholecystic inflammatory changes. No biliary ductal dilatation. No focal hepatic mass lesion appreciated on this single phase exam. Liver contour appears smooth. Spleen, adrenal glands and pancreas unremarkable. Kidneys enhance symmetrically. There is no urinary tract stone. No perinephric stranding. The uterus is markedly enlarged with multiple heterogeneous masses, the largest in the anterior myometrium with smaller masses noted in the posterior myometrium and fundus. Masses demonstrate some internal high attenuation components and branching foci of air which may related to fibroid embolization and correlation with history is recommended. There is no evidence of free intraperitoneal air or fluid. No evidence of bowel obstruction. Appendix is normal in caliber. No periappendiceal inflammatory changes. Abdominal aorta normal in caliber. No pathologically enlarged lymphadenopathy. There is a small fat-containing umbilical hernia. There is no acute osseous abnormality. IMPRESSION: * Markedly enlarged and lobulated uterus with multiple heterogeneous masses suggesting fibroids. High attenuation material within these presumed fibroids may represent areas of hemorrhage and/or retained contrast from prior contrast load, especially as there is branching foci of air within these masses which may suggest recent endovascular intervention such as fibroid embolization. Correlation with history is recommended. * High density material noted within the gallbladder lumen suggesting vicarious excretion of contrast. No pericholecystic inflammatory changes. * Subcentimeter pleural-based nodular densities which may related to atelectatic changes or pulmonary nodules. These measure less than 5 mm. No routine imaging follow-up is recommended per Fleischner Society criteria guidelines if patient is considered low risk for lung cancer. If the patient is considered high risk consider follow-up CT scan in 12 months. Juan Jose Youssef Sep 12, 2019 17:05
[2019-09-12] MEDS: Docusate 100mg cap ORAL SCH (18:00)
--- NOTE | 2019-09-12 19:40 | NUR ---
NURSE NOTES: Received report from YVONNE Duenas. Rounding is done with outgoing nurse. Patient is awake, a/o x4, verbally responsive, and able to know her needs. Breathing is even and unlabored. IV line in Lt. Hand is intact and patent. patient no c/o pain at this time because patient got pain medication around 1900. Bed is on alarm, locked, and lowest position. Call light within reach. Will continue to monitor.
[2019-09-12 20:00] VITALS: BP 143/100
--- NOTE | 2019-09-12 20:11 | NUR ---
NURSE NOTES: Patient remained safe during my shift. reporting pain 6-8/10, pain medication administered as ordered. tap water enema and mag citrate given patient have a total of 4 BM loose/watery stool patient reported getting relive after passing bowel. Ambulated x2 during my shift. Patient still reporting unable to pass gas. Refused scheduled MOM and docusate due to cramping. No vaginal discharge reported or noted.
[2019-09-12] MEDS: Miralax 17gm pkt ORAL SCH (21:19)
[2019-09-13] VITALS: BP 144/100
[2019-09-13 04:00] VITALS: BP 152/93
[2019-09-13] MEDS: ceFAZolin sod 1 GM in D5W 55 ML IVPB SCH ×3 (05:53→21:01)
[2019-09-13 06:47] LABS: BASOPHILS % (AUTO) 1.6 % (0.0-2.0); HEMATOCRIT 39.9 % (37.0-47.0); HEMOGLOBIN 13.2 G/DL (12.0-16.0); LYMPHOCYTES % (AUTO) 20.2 % (20.0-45.0); MEAN CORPUSCULAR VOLUME 89 FL (80-99); MONOCYTES % (AUTO) 9.7 % (1.0-10.0); NEUTROPHILS % (AUTO) 67.4 % (45.0-75.0); PLATELET COUNT 205 K/UL (150-450); RED BLOOD COUNT 4.46 M/UL (4.20-5.40); RED CELL DISTRIBUTION WIDTH 10.7 % (11.6-14.8); WHITE BLOOD COUNT 8.1 K/UL (4.8-10.8)
[2019-09-13 07:18] LABS: ALANINE AMINOTRANSFERASE 62 U/L (12-78); ALBUMIN 3.4 G/DL (3.4-5.0); ALBUMIN/GLOBULIN RATIO 0.7 (1.0-2.7); ALKALINE PHOSPHATASE 89 U/L (46-116); ANION GAP 10 mmol/L (5-15); ASPARTATE AMINO TRANSFERASE 79 U/L (15-37); BILIRUBIN,TOTAL 1.2 MG/DL (0.2-1.0); BLOOD UREA NITROGEN 7 mg/dL (7-18); CALCIUM 9.3 MG/DL (8.5-10.1); CARBON DIOXIDE 26 MMOL/L (21-32); CHLORIDE 101 MMOL/L (98-107); CREATININE 0.9 MG/DL (0.55-1.30); POTASSIUM 3.7 MMOL/L (3.5-5.1); SODIUM 137 MMOL/L (136-145)
[2019-09-13 07:21] LABS: BILIRUBIN,DIRECT 0.1 MG/DL (0.0-0.3)
--- NOTE | 2019-09-13 07:48 | NUR ---
HAND-OFF: Report given to Miriam RUSSELL. Patient in stable condition.
--- NOTE | 2019-09-13 07:50 | NUR ---
NURSE NOTES: Patient is in bed awake and able to verbalize needs. stable. Denies pain or SOB at this time. Surgical site c/d/i. Patient encouraged to ambulate, verbalized understanding. All needs met at this time. Will continue to monitor.
[2019-09-13 08:00] VITALS: BP 141/81
[2019-09-13] MEDS: Docusate 100mg cap ORAL SCH ×2 (08:48→18:16)
[2019-09-13] MEDS: Milk of Magnesia 30ml Ud ORAL SCH ×2 (08:48→18:16)
[2019-09-13] MEDS: HYDROcodone/Acetamin 5/325 tab ORAL PRN ×2 (10:31→16:00)
[2019-09-13] MEDS: Dicyclomine HCl 10mg/5ml oral soln ORAL PRN ×3 (11:29→21:00)
[2019-09-13] MEDS: Simethicone 80mg tab ORAL PRN ×3 (11:29→16:00)
--- NOTE | 2019-09-13 11:36 | Surgery Progress Note ---
Surgery Progress Note Subjective Symptoms: improved, tolerating diet, voiding well, passing flatus, pain decreased Objective Last 24 Hour Vital Signs Date Time Temp Pulse Resp B/P (MAP) Pulse Ox O2 Delivery O2 Flow Rate FiO2 09/13/19 09:00 Room Air 09/13/19 08:00 98.1 85 19 141/81 (101) 100 09/13/19 04:00 98.7 84 19 152/93 (112) 100 09/13/19 00:00 98.7 84 18 144/100 (115) 98 09/12/19 21:00 Room Air 09/12/19 20:00 98.7 83 18 143/100 (114) 96 09/12/19 19:36 100.1 09/12/19 16:00 98.5 93 20 146/92 (110) 100 09/12/19 12:05 100.1 09/12/19 12:00 Room Air 09/12/19 12:00 98.1 90 20 142/98 (113) 99 I&O Intake and Output 09/12/19 09/13/19 19:00 07:00 Intake Total 240 ml 1200 ml Balance 240 ml 1200 ml Intake Oral 240 ml 1200 ml # Voids 2 3 # Bowel Movements 1 3 Cardiovascular: RSR Respiratory: clear Abdomen: soft, flat, tenderness, other, non-distended Extremities: no edema, no tenderness, no cyanosis Laboratory Tests Test 09/13/19 05:15 White Blood Count 8.1 K/UL (4.8-10.8) Red Blood Count 4.46 M/UL (4.20-5.40) Hemoglobin 13.2 G/DL (12.0-16.0) Hematocrit 39.9 % (37.0-47.0) Mean Corpuscular Volume 89 FL (80-99) Mean Corpuscular Hemoglobin 29.7 PG (27.0-31.0) Mean Corpuscular Hemoglobin Concent 33.2 G/DL (32.0-36.0) Red Cell Distribution Width 10.7 % (11.6-14.8) L Platelet Count 205 K/UL (150-450) Mean Platelet Volume 7.7 FL (6.5-10.1) Neutrophils (%) (Auto) 67.4 % (45.0-75.0) Lymphocytes (%) (Auto) 20.2 % (20.0-45.0) Monocytes (%) (Auto) 9.7 % (1.0-10.0) Eosinophils (%) (Auto) 1.0 % (0.0-3.0) Basophils (%) (Auto) 1.6 % (0.0-2.0) Sodium Level 137 MMOL/L (136-145) Potassium Level 3.7 MMOL/L (3.5-5.1) Chloride Level 101 MMOL/L (98-107) Carbon Dioxide Level 26 MMOL/L (21-32) Anion Gap 10 mmol/L (5-15) Blood Urea Nitrogen 7 mg/dL (7-18) Creatinine 0.9 MG/DL (0.55-1.30) Estimat Glomerular Filtration Rate > 60 mL/min (>60) Glucose Level 97 MG/DL (74-106) Calcium Level 9.3 MG/DL (8.5-10.1) Total Bilirubin 1.2 MG/DL (0.2-1.0) H Direct Bilirubin 0.1 MG/DL (0.0-0.3) Aspartate Amino Transf (AST/SGOT) 79 U/L (15-37) H Alanine Aminotransferase (ALT/SGPT) 62 U/L (12-78) Alkaline Phosphatase 89 U/L (46-116) Total Protein 8.3 G/DL (6.4-8.2) H Albumin 3.4 G/DL (3.4-5.0) Globulin 4.9 g/dL Albumin/Globulin Ratio 0.7 (1.0-2.7) L Plan Problems: (1) Abdominal pain Assessment & Plan: This is a very pleasant 28-year-old female status post uterine artery embolization who presents with abdominal pain acutely. No nausea vomiting fever chills. Labs okay. Imaging noted. Abdominal exam fairly benign but does have some discomfort. Pain improved with appropriate pain management. No acute surgical intervention indicated recommended at this time. Unlikely appendicitis or other bowel or acute abdominal injury. Pain does seem relatively consistent with would be anticipated for her given history. Patient states she is slowly feeling better able to tolerate diet ambulatory. Passing flatus having bowel movements. Will follow with serial abdominal exams. No surgical plan for now. Thank you for let me participate in patient's care. We will follow with recommendations. CT as below. improving needs better pain control gi eval pain control d/c planning Subcentimeter subpleural nodular densities noted in the lung bases measuring less than 5 mm. These may be related to atelectatic changes versus pulmonary nodules. No focal consolidation. No pleural effusion or pneumothorax. Partially imaged heart normal in size. High attenuation material is noted within the gallbladder raising question for vicarious excretion of contrast. Correlate for this degree of prior contrast administration. No pericholecystic inflammatory changes. No biliary ductal dilatation. No focal hepatic mass lesion appreciated on this single phase exam. Liver contour appears smooth. Spleen, adrenal glands and pancreas unremarkable. Kidneys enhance symmetrically. There is no urinary tract stone. No perinephric stranding. The uterus is markedly enlarged with multiple heterogeneous masses, the largest in the anterior myometrium with smaller masses noted in the posterior myometrium and fundus. Masses demonstrate some internal high attenuation components and branching foci of air which may related to fibroid embolization and correlation with history is recommended. There is no evidence of free intraperitoneal air or fluid. No evidence of bowel obstruction. Appendix is normal in caliber. No periappendiceal inflammatory changes. Abdominal aorta normal in caliber. No pathologically enlarged lymphadenopathy. There is a small fat-containing umbilical hernia. There is no acute osseous abnormality. IMPRESSION: * Markedly enlarged and lobulated uterus with multiple heterogeneous masses suggesting fibroids. High attenuation material within these presumed fibroids may represent areas of hemorrhage and/or retained contrast from prior contrast load, especially as there is branching foci of air within these masses which may suggest recent endovascular intervention such as fibroid embolization. Correlation with history is recommended. * High density material noted within the gallbladder lumen suggesting vicarious excretion of contrast. No pericholecystic inflammatory changes. * Subcentimeter pleural-based nodular densities which may related to atelectatic changes or pulmonary nodules. These measure less than 5 mm. No routine imaging follow-up is recommended per Fleischner Society criteria guidelines if patient is considered low risk for lung cancer. If the patient is considered high risk consider follow-up CT scan in 12 months. Juan Jose Youssef Sep 13, 2019 11:36
[2019-09-13 12:00] VITALS: BP 141/94
--- NOTE | 2019-09-13 13:20 | Pulmonology Progress Note ---
Assessment/Plan Assessment/Plan Problem List: * Abdominal pain, post-operative * Uterine artery embolization 09/09/19 * Uterine fibroids * Asthma w/o acute exacerbation * subcentimeter pulmonary nodules CT abdomen/pelvis lung cuts 09/10/19 Plan: * pain control * IVF * PO as tolerated * monitor breathing * advised to ambulate * low risk pulmonary patient, no need to f/u subcentimeter pulmonary micronodules Subjective Interval Events: still pain but better. Having BMs, Feels has gas HEENT: Repors: no symptoms Respiratory: Reports: no symptoms Cardiovascular: Reports: no symptoms Gastrointestinal/Abdominal: Reports: bloating Genitourinary: Reports: no symptoms Neurologic: Reports: no symptoms Psychiatric: Reports: no symptoms Allergies: Coded Allergies: No Known Allergies (Unverified , 09/10/19) Objective Last 24 Hour Vital Signs Date Time Temp Pulse Resp B/P (MAP) Pulse Ox O2 Delivery O2 Flow Rate FiO2 09/13/19 12:00 97.3 80 18 141/94 (110) 98 09/13/19 09:00 Room Air 09/13/19 08:00 98.1 85 19 141/81 (101) 100 09/13/19 04:00 98.7 84 19 152/93 (112) 100 09/13/19 00:00 98.7 84 18 144/100 (115) 98 09/12/19 21:00 Room Air 09/12/19 20:00 98.7 83 18 143/100 (114) 96 09/12/19 19:36 100.1 09/12/19 16:00 98.5 93 20 146/92 (110) 100 Intake and Output 09/12/19 09/13/19 19:00 07:00 Intake Total 240 ml 1200 ml Balance 240 ml 1200 ml Intake Oral 240 ml 1200 ml # Voids 2 3 # Bowel Movements 1 3 General Appearance: no acute distress HEENT: mucous membranes moist Respiratory/Chest: lungs clear Cardiovascular: normal rate, regular rhythm Abdomen: distended Extremities: no edema Laboratory Tests 09/13/19 05:15: White Blood Count 8.1, Red Blood Count 4.46, Hemoglobin 13.2, Hematocrit 39.9, Mean Corpuscular Volume 89, Mean Corpuscular Hemoglobin 29.7, Mean Corpuscular Hemoglobin Concent 33.2, Red Cell Distribution Width 10.7L, Platelet Count 205, Mean Platelet Volume 7.7, Neutrophils (%) (Auto) 67.4, Lymphocytes (%) (Auto) 20.2, Monocytes (%) (Auto) 9.7, Eosinophils (%) (Auto) 1.0, Basophils (%) (Auto ) 1.6, Sodium Level 137, Potassium Level 3.7, Chloride Level 101, Carbon Dioxide Level 26, Anion Gap 10, Blood Urea Nitrogen 7, Creatinine 0.9, Estimat Glomerular Filtration Rate > 60, Glucose Level 97, Calcium Level 9.3, Total Bilirubin 1.2H, Direct Bilirubin 0.1, Aspartate Amino Transf (AST/SGOT) 79H, Alanine Aminotransferase (ALT/SGPT) 62, Alkaline Phosphatase 89, Total Protein 8.3H, Albumin 3.4, Globulin 4.9, Albumin/Globulin Ratio 0.7L Current Medications Medications (Trade) Dose Ordered Sig/Chelly Route PRN Reason Start Time Stop Time Status Last Admin Dose Admin Acetaminophen/ Hydrocodone Bitart ([place] 5/325) 1 tab Q3H PRN ORAL Mild Pain (Pain Scale 1-3) 09/10/19 17:00 09/17/19 16:59 09/13/19 10:31 Cefazolin Sodium 1 gm/Dextrose 55 ml @ 110 mls/hr Q8HR IVPB 09/10/19 14:00 09/17/19 13:59 09/13/19 05:53 Dicyclomine HCl (Bentyl) 10 mg QIDPRN PRN ORAL Abdominal cramps 09/12/19 11:45 10/12/19 11:44 09/13/19 11:29 Docusate Sodium (Colace) 100 mg TWICE A DAY ORAL 09/12/19 18:00 10/12/19 17:59 09/13/19 08:48 Hydromorphone HCl (Dilaudid) 1 mg Q3HR PRN IVP For mild pain 09/10/19 10:30 09/17/19 10:29 09/12/19 22:30 Hydromorphone HCl (Dilaudid) 2 mg Q2HR PRN IVP For severe pain 09/10/19 10:30 09/17/19 10:29 09/12/19 11:35 Hydromorphone HCl (Dilaudid) 2 mg Q3HR PRN IVP For moderate pain 09/10/19 10:30 09/17/19 10:29 09/13/19 07:13 Magnesium Hydroxide (Mom) 30 ml BID ORAL 09/11/19 09:00 10/11/19 08:59 09/13/19 08:48 Ondansetron HCl (Zofran) 4 mg Q6H PRN IVP Nausea & Vomiting 09/10/19 10:30 10/10/19 10:29 Polyethylene Glycol (Miralax) 17 gm BEDTIME ORAL 09/12/19 21:00 10/12/19 20:59 09/12/19 21:19 Simethicone (Mylicon) 80 mg QID PRN ORAL GAS 09/13/19 10:45 10/13/19 10:44 09/13/19 11:29 Nahid Hatch MD Sep 13, 2019 13:20
--- NOTE | 2019-09-13 15:00 | NUR ---
NURSE NOTES: Patient had liquid bowel movement. Patient still complains of cramping and gas pain, will administer medication as ordered. Patient encouraged to ambulate.
[2019-09-13 16:00] VITALS: BP 143/80
--- NOTE | 2019-09-13 19:30 | NUR ---
HAND-OFF: Report given to Mary Jane RUSSELL. Patient is stable.
--- NOTE | 2019-09-13 19:30 | NUR ---
Patient is in bed, awake and alert x4. No c/o SOB at this time. IV intact and patent. Bed locked and in lowest position. Will continue to monitor.
[2019-09-13 20:00] VITALS: BP 136/82
--- NOTE | 2019-09-13 20:08 | General Progress Note ---
Assessment/Plan Assessment/Plan: Assessment - Pelvic pain - s/p UAE Recommendations - pain control - Post op care - follow exam Subjective Allergies: Coded Allergies: No Known Allergies (Unverified , 09/10/19) Subjective above noted c/o abd pain and distension (+) BM yesterday Objective Last 24 Hour Vital Signs Date Time Temp Pulse Resp B/P (MAP) Pulse Ox O2 Delivery O2 Flow Rate FiO2 09/13/19 16:00 97.9 74 20 143/80 (101) 100 09/13/19 12:00 97.3 80 18 141/94 (110) 98 09/13/19 09:00 Room Air 09/13/19 08:00 98.1 85 19 141/81 (101) 100 09/13/19 04:00 98.7 84 19 152/93 (112) 100 09/13/19 00:00 98.7 84 18 144/100 (115) 98 09/12/19 21:00 Room Air Intake and Output 09/12/19 09/13/19 19:00 07:00 Intake Total 240 ml 1200 ml Balance 240 ml 1200 ml Intake Oral 240 ml 1200 ml # Voids 2 3 # Bowel Movements 1 3 Laboratory Tests 09/13/19 05:15: White Blood Count 8.1, Red Blood Count 4.46, Hemoglobin 13.2, Hematocrit 39.9, Mean Corpuscular Volume 89, Mean Corpuscular Hemoglobin 29.7, Mean Corpuscular Hemoglobin Concent 33.2, Red Cell Distribution Width 10.7L, Platelet Count 205, Mean Platelet Volume 7.7, Neutrophils (%) (Auto) 67.4, Lymphocytes (%) (Auto) 20.2, Monocytes (%) (Auto) 9.7, Eosinophils (%) (Auto) 1.0, Basophils (%) (Auto ) 1.6, Sodium Level 137, Potassium Level 3.7, Chloride Level 101, Carbon Dioxide Level 26, Anion Gap 10, Blood Urea Nitrogen 7, Creatinine 0.9, Estimat Glomerular Filtration Rate > 60, Glucose Level 97, Calcium Level 9.3, Total Bilirubin 1.2H, Direct Bilirubin 0.1, Aspartate Amino Transf (AST/SGOT) 79H, Alanine Aminotransferase (ALT/SGPT) 62, Alkaline Phosphatase 89, Total Protein 8.3H, Albumin 3.4, Globulin 4.9, Albumin/Globulin Ratio 0.7L Height (Feet): 5 Height (Inches): 7.00 Weight (Pounds): 192 Objective WDWN AA woman NCAT supple CTA RRR abd distended lower abd, (+) TTP no edema Joaquín Lopez MD Sep 13, 2019 20:08
[2019-09-13] MEDS: Miralax 17gm pkt ORAL SCH (21:00)
[2019-09-14] VITALS: BP 137/90
[2019-09-14] MEDS: Simethicone 80mg tab ORAL PRN (01:04)
[2019-09-14] MEDS: HYDROcodone/Acetamin 5/325 tab ORAL PRN ×3 (01:05→14:29)
[2019-09-14 04:00] VITALS: BP 142/96
[2019-09-14] MEDS: ceFAZolin sod 1 GM in D5W 55 ML IVPB SCH ×2 (06:22→14:00)
[2019-09-14 06:31] LABS: BASOPHILS % (AUTO) 1.6 % (0.0-2.0); EOSINOPHILS % (AUTO) 2.9 % (0.0-3.0); HEMATOCRIT 36.3 % (37.0-47.0); HEMOGLOBIN 12.1 G/DL (12.0-16.0); LYMPHOCYTES % (AUTO) 27.9 % (20.0-45.0); MEAN CORPUSCULAR VOLUME 89 FL (80-99); MONOCYTES % (AUTO) 9.3 % (1.0-10.0); NEUTROPHILS % (AUTO) 58.2 % (45.0-75.0); PLATELET COUNT 210 K/UL (150-450); RED BLOOD COUNT 4.07 M/UL (4.20-5.40); RED CELL DISTRIBUTION WIDTH 10.6 % (11.6-14.8); WHITE BLOOD COUNT 6.5 K/UL (4.8-10.8)
--- NOTE | 2019-09-14 07:38 | NUR ---
HAND-OFF: Report given to YVONNE Abraham.
--- NOTE | 2019-09-14 07:38 | NUR ---
NURSE NOTES:RECEIVED REPORT FR NIGHT RN(ROSIO)PT.AWAKE EATING BREAKFAST,A/OX4,ROOM AIR,IV SITE LEFT HAND#22 PATENT,RIGHT GROIN(SURGICAL SITE)WITH TEGADERM,C/D/I.PT HAD BM LAST NIGHT,NO C/O PAIN,PLAN OF CARE DISCUSSED AND WITH UNDERSTANDING.
[2019-09-14 08:00] VITALS: BP 138/97
[2019-09-14] MEDS: Milk of Magnesia 30ml Ud ORAL SCH (08:24)
[2019-09-14] MEDS: Docusate 100mg cap ORAL SCH (08:24)
--- NOTE | 2019-09-14 10:00 | NUR ---
NURSE NOTES:DR. GRAVES CALLED IN AND UPDATED PTS STATUS,STATED TO HAVE PT CALL MD.PLAN FOR D/C TODAY.
--- NOTE | 2019-09-14 11:42 | Surgery Progress Note ---
Surgery Progress Note Subjective Symptoms: improved, tolerating diet, voiding well, passing flatus, pain decreased Objective Last 24 Hour Vital Signs Date Time Temp Pulse Resp B/P (MAP) Pulse Ox O2 Delivery O2 Flow Rate FiO2 09/14/19 08:00 98.5 75 18 138/97 (111) 100 09/14/19 07:38 Room Air 09/14/19 04:00 98.6 70 16 142/96 (111) 99 09/14/19 00:00 98.9 76 16 137/90 (106) 99 09/13/19 21:00 Room Air 09/13/19 20:00 97.7 83 18 136/82 (100) 100 09/13/19 16:00 97.9 74 20 143/80 (101) 100 09/13/19 12:00 97.3 80 18 141/94 (110) 98 I&O Intake and Output 09/13/19 09/14/19 19:00 07:00 Intake Total 240 ml Balance 240 ml Intake Oral 240 ml # Voids 2 # Bowel Movements 1 Cardiovascular: RSR Respiratory: clear Abdomen: soft, tenderness - improved , present bowel sounds, other Extremities: no edema, no tenderness, no cyanosis Laboratory Tests Test 09/14/19 05:20 White Blood Count 6.5 K/UL (4.8-10.8) Red Blood Count 4.07 M/UL (4.20-5.40) L Hemoglobin 12.1 G/DL (12.0-16.0) Hematocrit 36.3 % (37.0-47.0) L Mean Corpuscular Volume 89 FL (80-99) Mean Corpuscular Hemoglobin 29.8 PG (27.0-31.0) Mean Corpuscular Hemoglobin Concent 33.5 G/DL (32.0-36.0) Red Cell Distribution Width 10.6 % (11.6-14.8) L Platelet Count 210 K/UL (150-450) Mean Platelet Volume 7.9 FL (6.5-10.1) Neutrophils (%) (Auto) 58.2 % (45.0-75.0) Lymphocytes (%) (Auto) 27.9 % (20.0-45.0) Monocytes (%) (Auto) 9.3 % (1.0-10.0) Eosinophils (%) (Auto) 2.9 % (0.0-3.0) Basophils (%) (Auto) 1.6 % (0.0-2.0) Plan Problems: (1) Abdominal pain Assessment & Plan: This is a very pleasant 28-year-old female status post uterine artery embolization who presents with abdominal pain acutely. No nausea vomiting fever chills. Labs okay. Imaging noted. Abdominal exam fairly benign but does have some discomfort. Pain improved with appropriate pain management. No acute surgical intervention indicated recommended at this time. Unlikely appendicitis or other bowel or acute abdominal injury. Pain does seem relatively consistent with would be anticipated for her given history. Patient states she is slowly feeling better able to tolerate diet ambulatory. Passing flatus having bowel movements. Will follow with serial abdominal exams. No surgical plan for now. Thank you for let me participate in patient's care. We will follow with recommendations. CT as below. improving needs better pain control gi eval pain control d/c planning Subcentimeter subpleural nodular densities noted in the lung bases measuring less than 5 mm. These may be related to atelectatic changes versus pulmonary nodules. No focal consolidation. No pleural effusion or pneumothorax. Partially imaged heart normal in size. High attenuation material is noted within the gallbladder raising question for vicarious excretion of contrast. Correlate for this degree of prior contrast administration. No pericholecystic inflammatory changes. No biliary ductal dilatation. No focal hepatic mass lesion appreciated on this single phase exam. Liver contour appears smooth. Spleen, adrenal glands and pancreas unremarkable. Kidneys enhance symmetrically. There is no urinary tract stone. No perinephric stranding. The uterus is markedly enlarged with multiple heterogeneous masses, the largest in the anterior myometrium with smaller masses noted in the posterior myometrium and fundus. Masses demonstrate some internal high attenuation components and branching foci of air which may related to fibroid embolization and correlation with history is recommended. There is no evidence of free intraperitoneal air or fluid. No evidence of bowel obstruction. Appendix is normal in caliber. No periappendiceal inflammatory changes. Abdominal aorta normal in caliber. No pathologically enlarged lymphadenopathy. There is a small fat-containing umbilical hernia. There is no acute osseous abnormality. IMPRESSION: * Markedly enlarged and lobulated uterus with multiple heterogeneous masses suggesting fibroids. High attenuation material within these presumed fibroids may represent areas of hemorrhage and/or retained contrast from prior contrast load, especially as there is branching foci of air within these masses which may suggest recent endovascular intervention such as fibroid embolization. Correlation with history is recommended. * High density material noted within the gallbladder lumen suggesting vicarious excretion of contrast. No pericholecystic inflammatory changes. * Subcentimeter pleural-based nodular densities which may related to atelectatic changes or pulmonary nodules. These measure less than 5 mm. No routine imaging follow-up is recommended per Fleischner Society criteria guidelines if patient is considered low risk for lung cancer. If the patient is considered high risk consider follow-up CT scan in 12 months. Juan Jose Youssef Sep 14, 2019 11:42
[2019-09-14 12:00] VITALS: BP 125/69
[2019-09-14] MEDS ORDERED: Hydromorphone 0.5mg/0.5ml inj IVP PRN (12:03)
[2019-09-14] MEDS ORDERED: HYDROmorphone 1mg/ml Carpuject IVP PRN ×2 (12:15)
--- NOTE | 2019-09-14 13:17 | Discharge Instructions ---
Discharge Instructions Discharge Instructions Follow up with: Dr. Mills For Congestive Heart Failure Reminder Report to your physician any weight gain of 5 pounds or more in one week. Nahid Hatch MD Sep 14, 2019 13:17
--- NOTE | 2019-09-14 13:18 | Pulmonology Progress Note ---
Assessment/Plan Assessment/Plan Problem List: * Abdominal pain, post-operative * Uterine artery embolization 09/09/19 * Uterine fibroids * Asthma w/o acute exacerbation * subcentimeter pulmonary nodules CT abdomen/pelvis lung cuts 09/10/19 Plan: * pain control * PO as tolerated * monitor breathing * advised to ambulate * low risk pulmonary patient, no need to f/u subcentimeter pulmonary micronodules * discharge home, f/u w/ Dr. Mills Subjective ROS Limited/Unobtainable: No Interval Events: Walking in hallways, passing gas. Pain manageable Allergies: Coded Allergies: No Known Allergies (Unverified , 09/10/19) Objective Last 24 Hour Vital Signs Date Time Temp Pulse Resp B/P (MAP) Pulse Ox O2 Delivery O2 Flow Rate FiO2 09/14/19 12:00 97.5 69 18 125/69 (87) 99 09/14/19 08:00 98.5 75 18 138/97 (111) 100 09/14/19 07:38 Room Air 09/14/19 04:00 98.6 70 16 142/96 (111) 99 09/14/19 00:00 98.9 76 16 137/90 (106) 99 09/13/19 21:00 Room Air 09/13/19 20:00 97.7 83 18 136/82 (100) 100 09/13/19 16:00 97.9 74 20 143/80 (101) 100 Intake and Output 09/13/19 09/14/19 18:59 06:59 Intake Total 240 ml Balance 240 ml Intake Oral 240 ml # Voids 2 # Bowel Movements 1 General Appearance: no acute distress HEENT: mucous membranes moist Respiratory/Chest: lungs clear Cardiovascular: normal rate Abdomen: distended Extremities: no edema Laboratory Tests 09/14/19 05:20: White Blood Count 6.5, Red Blood Count 4.07L, Hemoglobin 12.1, Hematocrit 36.3L , Mean Corpuscular Volume 89, Mean Corpuscular Hemoglobin 29.8, Mean Corpuscular Hemoglobin Concent 33.5, Red Cell Distribution Width 10.6L, Platelet Count 210, Mean Platelet Volume 7.9, Neutrophils (%) (Auto) 58.2, Lymphocytes (%) (Auto) 27.9, Monocytes (%) (Auto) 9.3, Eosinophils (%) (Auto) 2.9, Basophils (%) (Auto) 1.6 Current Medications Medications (Trade) Dose Ordered Sig/Chelly Route PRN Reason Start Time Stop Time Status Last Admin Dose Admin Acetaminophen/ Hydrocodone Bitart ([place] 5/325) 1 tab Q3H PRN ORAL Mild Pain (Pain Scale 1-3) 09/10/19 17:00 09/17/19 16:59 09/14/19 08:24 Cefazolin Sodium 1 gm/Dextrose 55 ml @ 110 mls/hr Q8HR IVPB 09/10/19 14:00 09/17/19 13:59 09/14/19 06:22 Dicyclomine HCl (Bentyl) 10 mg QIDPRN PRN ORAL Abdominal cramps 09/12/19 11:45 10/12/19 11:44 09/13/19 21:00 Docusate Sodium (Colace) 100 mg TWICE A DAY ORAL 09/12/19 18:00 10/12/19 17:59 09/14/19 08:24 Hydromorphone HCl (Dilaudid) 0.5 mg Q4H PRN IVP For mild pain 09/14/19 12:03 09/21/19 12:02 Hydromorphone HCl (Dilaudid) 1 mg Q4H PRN IVP For moderate pain 09/14/19 12:15 09/21/19 12:14 Hydromorphone HCl (Dilaudid) 1 mg Q4H PRN IVP For severe pain 09/14/19 12:15 09/21/19 12:14 Magnesium Hydroxide (Mom) 30 ml BID ORAL 09/11/19 09:00 10/11/19 08:59 09/14/19 08:24 Ondansetron HCl (Zofran) 4 mg Q6H PRN IVP Nausea & Vomiting 09/10/19 10:30 10/10/19 10:29 Polyethylene Glycol (Miralax) 17 gm BEDTIME ORAL 09/12/19 21:00 10/12/19 20:59 09/13/19 21:00 Simethicone (Mylicon) 80 mg QID PRN ORAL GAS 09/13/19 10:45 10/13/19 10:44 09/14/19 01:04 Nahid Hatch MD Sep 14, 2019 13:18
--- NOTE | 2019-09-14 13:18 | NUR ---
NURSE NOTES:SEEN BY DR. HAY,RX GIVEN TO PT. BY .FOR D/C TODAY
[2019-09-14] MEDS ORDERED: NORCO 5-325 TA1 EACH ORAL (14:11)
--- NOTE | 2019-09-14 14:20 | NUR ---
NURSE NOTES:D/C INSTRUCTIONS GIVEN INCLUDING BELONGINGS,TO FOLLOW UP WITH DR. COLON,PT.VERBALIZED EDUCATION AND INSTRUCTIONS.MEDICATED PRIOR TO D/C WITH [facility]EV[facility] 3/10.WILL MONITOR.
[2019-09-14] MEDS ORDERED: NS 500ML ONE (14:59)
--- NOTE | 2019-09-14 15:10 | NUR ---
NURSE NOTES:d/c to home by private transportation,relieved fr pain.stable on discharge.picked up by sister(COREY)
--- NOTE | 2019-09-14 19:30 | General Progress Note ---
Assessment/Plan Assessment/Plan: Assessment - Pelvic pain - s/p UAE Recommendations - pain control - Post op care - d/c planning Subjective Allergies: Coded Allergies: No Known Allergies (Unverified , 09/10/19) Subjective above noted less abd pain and distension (+) BM (+) flatus Objective Last 24 Hour Vital Signs Date Time Temp Pulse Resp B/P (MAP) Pulse Ox O2 Delivery O2 Flow Rate FiO2 09/14/19 12:00 97.5 69 18 125/69 (87) 99 09/14/19 08:00 98.5 75 18 138/97 (111) 100 09/14/19 07:38 Room Air 09/14/19 04:00 98.6 70 16 142/96 (111) 99 09/14/19 00:00 98.9 76 16 137/90 (106) 99 09/13/19 21:00 Room Air 09/13/19 20:00 97.7 83 18 136/82 (100) 100 Intake and Output 09/13/19 09/14/19 19:00 07:00 Intake Total 240 ml Balance 240 ml Intake Oral 240 ml # Voids 2 # Bowel Movements 1 Laboratory Tests 09/14/19 05:20: White Blood Count 6.5, Red Blood Count 4.07L, Hemoglobin 12.1, Hematocrit 36.3L , Mean Corpuscular Volume 89, Mean Corpuscular Hemoglobin 29.8, Mean Corpuscular Hemoglobin Concent 33.5, Red Cell Distribution Width 10.6L, Platelet Count 210, Mean Platelet Volume 7.9, Neutrophils (%) (Auto) 58.2, Lymphocytes (%) (Auto) 27.9, Monocytes (%) (Auto) 9.3, Eosinophils (%) (Auto) 2.9, Basophils (%) (Auto) 1.6 Height (Feet): 5 Height (Inches): 7.00 Weight (Pounds): 192 Objective WDWN AA woman NCAT supple CTA RRR abd distended lower abd, (+) TTP no edema Joaquín Lopez MD Sep 14, 2019 19:30
--- NOTE | 2019-09-15 13:17 | NUR ---
*-* INSURANCE *-* ALL CLINICALS AND REVIEWS HAVE BEEN FAXED TO: [facility]:CHARIS [phone] FAX [phone] Work Work REF# [id number] Addendum: 09/15/19 at 1346 by FARZANEH BOONE CM *-* NO DISCHARGE SUMMARY IN SYSTEM YET
--- NOTE | 2019-09-16 11:05 | Discharge Summary ---
Discharge Summary Discharge Summary _ DATE OF ADMISSION: 09/10/2018 DATE OF DISCHARGE: 09/14/2018 DISCHARGED BY: Dr. Hatch REASON FOR ADMISSION: 28 years old female with past medical history of asthma, uterine artery embolization 09/09/2019 , presented to emergency room for evaluation due to abdominal pain for 1 day and nonbloody vomiting. Pain reported as sharp, nonradiating, 10 out of 10 on a scale 1-10. She denied fever or chills. Upon evaluation she was afebrile . laboratory work-up revealed no leukocytosis , stable hemoglobin, hematocrit and platelet count. Stable electrolytes and renal parameters. Stable LFT. Urinalysis revealed +3 blood, but no evidence of urinary tract infection. Urine test was negative. HCG was negative. CT of the abdomen and pelvis revealed markedly enlarged and lobulated uterus with multiply heterogeneous masses , suggesting fibroids. Findings suggested recent endovascular intervention as fibroid embolization. No pericholecystic inflammatory changes. Subcentimeter pulmonary nodules noted on CT scan of abdomen and pelvis lung cuts. Patient also reported that asthma bothered her for the last several days. She was using Ventolin inhaler at home and reported improvement in symptoms. In emergency department patient received IV fluids , antibiotics and analgesics. Patient subsequently admitted to medical floor for further management. CONSULTANTS: GI specialist Dr. Lopez surgery Dr. Youssef [employer] surgeon Dr. Mills [facility] COURSE: Patient admitted to medical surgical floor. Patient started on IV hydration and diet as tolerated. Pain management was addressed. Patient was a low risk pulmonary patient . No need for follow-up for subcentimeter pulmonary micronodules. Pulse oximetry was stable on room air. No evidence of asthma exacerbation. Respiratory status remained stable. Diet was advanced as tolerated. Antiemetics were on board as needed. Patient was able to tolerate diet and voided without difficulties. Ambulation was encouraged . Bowel regimen instituted. KUB revealed unremarkable bowel gas pattern. No masses or unusual calcifications. Pain management was further addressed as needed. Gas pain was managed with Simethicone as needed. Antispasmodic provided as needed. Pain was eventually controlled. Patient was stable for discharge home. Follow-up with [facility] Dr. Mills as outpatient. FINAL DIAGNOSES: Abdominal pain, postoperative s/p Uterine artery embolization 09/09 Uterine fibroids Asthma without acute exacerbation Subcentimeter pulmonary nodules , seen on CT abdomen and pelvis lung cuts 2019 DISCHARGE MEDICATIONS: See Medication Reconciliation list. DISCHARGE INSTRUCTIONS: Patient was discharged home. Follow-up with Dr. Mills as outpatient. I have been assigned to dictate discharge summary for this account. I was not involved in the patient's management. Iraida Foster NP Sep 16, 2019 11:05
== END 2019-09-14 15:00 | disposition home or self-care (01) | DRG 948 ==
LOC: EMR 04:32 → 3E 04:51 → EDBEDREQ 07:50 → SDSOVERFLO 09-11 13:59 → 3E 09-11 14:01
DX: G89.18 Other acute postprocedural pain (principal); R10.9 Unspecified abdominal pain; J45.909 Unspecified asthma, uncomplicated; D25.9 Leiomyoma of uterus, unspecified; Z98.890 Other specified postprocedural states; R91.8 Other nonspecific abnormal finding of lung field
CPT/HCPCS: 36415; 74018; 74177; 80053; 81003; 81025; 82248; 83690; 84703; 85025; 85610; 85730; 86850; 86900; 86901; 87081; 96361; 96374; 96375; 96376; 99285